=== PATIENT | male | born 1965 | race Caucasian/White ===

== ENCOUNTER 2020-09-28 21:17 | Inpatient (IN) ==
[2020-09-29] MEDS ORDERED: Naloxone 0.4 MG/ML INJ IVP PRN (00:38)
[2020-09-29] MEDS ORDERED: Ondansetron 4 MG/2 ML VIAL IVP PRN (00:38)
[2020-09-29] MEDS ORDERED: Acetaminophen 325 MG TABLET PO PRN (00:38)
[2020-09-29] MEDS ORDERED: Perflutren Lipid Microsphere 1.3 ML in 0.9 % Sodium Chloride 8.7 ML IVP PRN (00:47)
[2020-09-29 02:00] LABS: Basophils % 0.4 %; Eosinophils # 0.2 K/mcL (0.0-0.6); Eosinophils % 2.1 %; Hematocrit 36.6 % (37.5-50.1); Hemoglobin 11.5 g/dL (12.9-16.9); Immature Granulocytes % 0.4 % (0-4); Lymphocytes # 1.9 K/mcL (0.6-4.6); Lymphocytes % 22.4 %; Mean Corpuscular HGB Conc 31.4 g/dL (31.6-35.5); Mean Corpuscular Hemoglobin 25.5 pg (28.0-33.3); Mean Corpuscular Volume 81.2 fL (83.0-100.0); Mean Platelet Volume 10.5 fL (9.4-12.4); Monocytes # 0.7 K/mcL (0.0-1.3); Monocytes % 8.2 %; Neutrophils # 5.6 K/mcL (1.6-8.9); Platelet Count 196 K/mcL (140-400); Red Blood Count 4.51 M/mcL (4.19-5.50); Red Cell Distribution Width 17.4 % (11.5-14.5); Segmented Neutrophils % 66.5 %; White Blood Count 8.5 K/mcL (4.3-11.1)
[2020-09-29 02:21] LABS: BUN/Creatinine Ratio 11 (6-26); Blood Urea Nitrogen 10 mg/dL (6-20); Carbon Dioxide 36 mEq/L (23-29); Chloride 99 mEq/L (98-107); Glucose 78 mg/dL (70-105); Magnesium 1.4 mg/dL (1.6-2.6); Osmolality,Calculated 288 (280-300); Phosphorous 3.4 mg/dL (2.7-4.5); Potassium 3.6 mEq/L (3.5-5.1); Sodium 140 mEq/L (136-145); eGFR For African Americans > 60 (> 60); eGFR For Non-African Americans > 60 (> 60)
[2020-09-29 02:41] LABS: Thyroid Stimulating Hormone 1.378 mcIU/mL (0.340-5.600)
[2020-09-29] MEDS: Ipratropium/Albuterol Neb 3 ML IH SCH ×5 (03:21→21:41)
[2020-09-29] MEDS: Budesonide/Formoterol 160/4.5 1 PUFF INH IH SCH ×3 (03:21→21:41)
[2020-09-29 03:25] LABS: INR 1.9; Prothrombin Time 21.1 Seconds (9.4-12.1)
[2020-09-29] MEDS: levoFLOXacin 750 MG/150 ML 750 MG/150 ML BAG IVPB SCH (03:31)
[2020-09-29] MEDS: MethylPREDNISolone 40 MG/ML VIAL IVP SCH ×3 (05:20→18:04)
[2020-09-29 07:24] LABS: Troponin I 0.04 ng/mL (< 0.04)
[2020-09-29] MEDS: Nicotine 7 MG PATCH.TD24 TD SCH (08:15)
[2020-09-29] MEDS: Furosemide 40 MG/4 ML VIAL IVP SCH ×2 (08:15→20:39)
[2020-09-29] MEDS: Pantoprazole 40 MG VIAL IVP SCH (10:01)
[2020-09-29] MEDS ORDERED: *HR* FentaNYL (PF) 100 MCG/2 ML VIAL ONE (16:44)
[2020-09-29] MEDS ORDERED: *HR* Midazolam HCl 5 MG/5 ML VIAL IVP ONE ×2 (16:45→17:12)
[2020-09-29] MEDS ORDERED: *HR* FentaNYL (PF) 100 MCG/2 ML VIAL IVP ONE (17:12)
[2020-09-29] MEDS: carvediloL 6.25 MG TABLET PO SCH (18:04)
[2020-09-29] MEDS: IPRATROPIUM BROMIDE 0.03% NASAL SPRAY IH SCH (20:38)
[2020-09-29] MEDS: Tiotropium 10 INH DOSE IH SCH (21:24)
[2020-09-29] MEDS ORDERED: Budesonide/Formoterol 160/4.5 1 PUFF INH IH SCH (22:00)
[2020-09-30] MEDS: MethylPREDNISolone 40 MG/ML VIAL IVP SCH ×4 (01:27→18:12)
[2020-09-30] MEDS: levoFLOXacin 750 MG/150 ML 750 MG/150 ML BAG IVPB SCH ×2 (03:41→23:56)
[2020-09-30] MEDS: Ipratropium/Albuterol Neb 3 ML IH SCH ×4 (04:01→23:05)
[2020-09-30 07:54] LABS: Basophils % 0.1 %; Hematocrit 36.4 % (37.5-50.1); Hemoglobin 11.8 g/dL (12.9-16.9); Immature Granulocytes % 0.3 % (0-4); Lymphocytes # 0.5 K/mcL (0.6-4.6); Lymphocytes % 6.5 %; Mean Corpuscular HGB Conc 32.4 g/dL (31.6-35.5); Mean Corpuscular Hemoglobin 25.8 pg (28.0-33.3); Mean Corpuscular Volume 79.5 fL (83.0-100.0); Mean Platelet Volume 10.3 fL (9.4-12.4); Monocytes # 0.3 K/mcL (0.0-1.3); Monocytes % 4.1 %; Neutrophils # 6.3 K/mcL (1.6-8.9); Platelet Count 191 K/mcL (140-400); Red Blood Count 4.58 M/mcL (4.19-5.50); Red Cell Distribution Width 17.2 % (11.5-14.5)
[2020-09-30 08:44] LABS: Blood Urea Nitrogen 20 mg/dL (6-20); Carbon Dioxide 35 mEq/L (23-29); Chloride 94 mEq/L (98-107); Potassium 3.8 mEq/L (3.5-5.1); Sodium 137 mEq/L (136-145)
[2020-09-30 08:45] LABS: BUN/Creatinine Ratio 16 (6-26); Calcium 9.1 mg/dL (8.6-10.3); Glucose 167 mg/dL (70-105); Osmolality,Calculated 290 (280-300); eGFR For African Americans > 60 (> 60); eGFR For Non-African Americans > 60 (> 60)
[2020-09-30] MEDS ORDERED: Spironolactone 25 MG TABLET PO SCH (09:00)
[2020-09-30] MEDS: IPRATROPIUM BROMIDE 0.03% NASAL SPRAY IH SCH (09:21)
[2020-09-30] MEDS: Loratadine 10 MG TABLET PO SCH (09:21)
[2020-09-30] MEDS: carvediloL 6.25 MG TABLET PO SCH ×3 (09:21→18:12)
[2020-09-30] MEDS: Pantoprazole 40 MG VIAL IVP SCH (09:21)
[2020-09-30] MEDS: Nicotine 7 MG PATCH.TD24 TD SCH (09:22)
[2020-09-30] MEDS: Furosemide 40 MG/4 ML VIAL IVP SCH ×2 (09:22→20:11)
[2020-09-30] MEDS: Tiotropium 10 INH DOSE IH SCH ×2 (10:20→20:26)
[2020-09-30] MEDS: Budesonide/Formoterol 160/4.5 1 PUFF INH IH SCH ×2 (10:21→20:26)
[2020-09-30] MEDS ORDERED: MethylPREDNISolone 40 MG/ML VIAL IVP SCH (16:00)
[2020-09-30] MEDS: Apixaban 5 MG TABLET PO SCH (20:11)
[2020-09-30] MEDS: Magnesium Oxide 400 MG TABLET PO SCH (21:24)
[2020-10-01 02:55] LABS: Hematocrit 35.9 % (37.5-50.1); Hemoglobin 11.5 g/dL (12.9-16.9); Immature Granulocytes % 0.5 % (0-4); Lymphocytes # 0.5 K/mcL (0.6-4.6); Lymphocytes % 3.6 %; Mean Corpuscular Hemoglobin 25.5 pg (28.0-33.3); Mean Corpuscular Volume 79.6 fL (83.0-100.0); Mean Platelet Volume 10.3 fL (9.4-12.4); Monocytes # 0.7 K/mcL (0.0-1.3); Monocytes % 5.1 %; Platelet Count 191 K/mcL (140-400); Red Blood Count 4.51 M/mcL (4.19-5.50); Red Cell Distribution Width 17.4 % (11.5-14.5); Segmented Neutrophils % 90.8 %
[2020-10-01 02:56] LABS: White Blood Count 14.3 K/mcL (4.3-11.1)
[2020-10-01 03:19] LABS: BUN/Creatinine Ratio 24 (6-26); Blood Urea Nitrogen 33 mg/dL (6-20); Carbon Dioxide 34 mEq/L (23-29); Chloride 96 mEq/L (98-107); Chol/HDL Ratio 3.6 (0-4.9); Cholesterol 125 mg/dL (< 200); Glucose 142 mg/dL (70-105); HDL Cholesterol 35 mg/dL (40-59); LDL Cholesterol,Calculated 73 mg/dL (< 100); Magnesium 1.6 mg/dL (1.6-2.6); Osmolality,Calculated 296 (280-300); Potassium 3.9 mEq/L (3.5-5.1); Sodium 138 mEq/L (136-145); Triglycerides 85 mg/dL (< 150); eGFR For African Americans > 60 (> 60); eGFR For Non-African Americans 54 (> 60)
[2020-10-01] MEDS: Ipratropium/Albuterol Neb 3 ML IH SCH ×3 (04:15→15:20)
[2020-10-01] MEDS: MethylPREDNISolone 40 MG/ML VIAL IVP SCH (06:23)
[2020-10-01] MEDS ORDERED: carvediloL 6.25 MG TABLET PO SCH (08:00)
[2020-10-01] MEDS ORDERED: Magnesium Oxide 400 MG TABLET PO SCH (09:00)
[2020-10-01] MEDS ORDERED: Furosemide 40 MG/4 ML VIAL IVP SCH (09:00)
[2020-10-01] MEDS: Spironolactone 25 MG TABLET PO SCH (09:11)
[2020-10-01] MEDS: Aspirin 81 MG TAB.CHEW PO SCH (09:11)
[2020-10-01] MEDS: predniSONE 20 MG TABLET PO SCH (09:11)
[2020-10-01] MEDS: levoFLOXacin 750 MG TABLET PO SCH (09:11)
[2020-10-01] MEDS: Apixaban 5 MG TABLET PO SCH ×2 (09:11→20:39)
[2020-10-01] MEDS: Pantoprazole 40 MG VIAL IVP SCH (09:11)
[2020-10-01] MEDS: carvediloL 6.25 MG TABLET PO SCH ×2 (09:12→16:33)
[2020-10-01] MEDS: Nicotine 7 MG PATCH.TD24 TD SCH (09:12)
[2020-10-01] MEDS: Loratadine 10 MG TABLET PO SCH (09:12)
[2020-10-01] MEDS: Magnesium Oxide 400 MG TABLET PO SCH (09:12)
[2020-10-01] MEDS: Isosorbide MONOnitrate (24 HR) 30 MG TAB.ER.24H PO SCH (09:12)
[2020-10-01] MEDS: Budesonide/Formoterol 160/4.5 1 PUFF INH IH SCH ×2 (10:13→22:29)
[2020-10-01] MEDS: Tiotropium 10 INH DOSE IH SCH ×2 (10:14→22:33)
[2020-10-01] MEDS ORDERED: Furosemide 40 MG/4 ML VIAL IVP ONE (10:56)
[2020-10-01] MEDS: Levalbuterol Neb 0.63 MG/3 ML IH SCH (22:29)
[2020-10-02 01:17] LABS: Basophils % 0.1 %; Hematocrit 33.3 % (37.5-50.1); Hemoglobin 10.9 g/dL (12.9-16.9); Immature Granulocytes % 0.5 % (0-4); Lymphocytes # 0.6 K/mcL (0.6-4.6); Lymphocytes % 4.2 %; Mean Corpuscular HGB Conc 32.7 g/dL (31.6-35.5); Mean Corpuscular Hemoglobin 25.9 pg (28.0-33.3); Mean Corpuscular Volume 79.1 fL (83.0-100.0); Mean Platelet Volume 10.9 fL (9.4-12.4); Monocytes # 0.9 K/mcL (0.0-1.3); Monocytes % 6.3 %; Neutrophils # 12.4 K/mcL (1.6-8.9); Platelet Count 187 K/mcL (140-400); Red Blood Count 4.21 M/mcL (4.19-5.50); Red Cell Distribution Width 17.2 % (11.5-14.5); Segmented Neutrophils % 88.9 %; White Blood Count 13.9 K/mcL (4.3-11.1)
[2020-10-02 01:36] LABS: BUN/Creatinine Ratio 31 (6-26); Blood Urea Nitrogen 44 mg/dL (6-20); Calcium 8.9 mg/dL (8.6-10.3); Carbon Dioxide 36 mEq/L (23-29); Chloride 93 mEq/L (98-107); Glucose 139 mg/dL (70-105); Osmolality,Calculated 293 (280-300); Potassium 4.1 mEq/L (3.5-5.1); Sodium 135 mEq/L (136-145); eGFR For African Americans > 60 (> 60); eGFR For Non-African Americans 51 (> 60)
[2020-10-02] MEDS: Levalbuterol Neb 0.63 MG/3 ML IH SCH ×4 (03:59→22:05)
[2020-10-02] MEDS: Aspirin 81 MG TAB.CHEW PO SCH (07:59)
[2020-10-02] MEDS: Pantoprazole 40 MG VIAL IVP SCH (07:59)
[2020-10-02] MEDS: Magnesium Oxide 400 MG TABLET PO SCH (08:00)
[2020-10-02] MEDS: Furosemide 40 MG TABLET PO SCH (08:00)
[2020-10-02] MEDS: predniSONE 20 MG TABLET PO SCH (08:00)
[2020-10-02] MEDS: Apixaban 5 MG TABLET PO SCH ×2 (08:00→21:21)
[2020-10-02] MEDS: carvediloL 6.25 MG TABLET PO SCH ×2 (08:00→16:32)
[2020-10-02] MEDS: levoFLOXacin 750 MG TABLET PO SCH (08:00)
[2020-10-02] MEDS: Isosorbide MONOnitrate (24 HR) 30 MG TAB.ER.24H PO SCH (08:00)
[2020-10-02] MEDS: Spironolactone 25 MG TABLET PO SCH (08:00)
[2020-10-02] MEDS: Loratadine 10 MG TABLET PO SCH (08:01)
[2020-10-02] MEDS: Nicotine 7 MG PATCH.TD24 TD SCH (08:01)
[2020-10-02] MEDS: Budesonide/Formoterol 160/4.5 1 PUFF INH IH SCH ×2 (10:40→22:04)
[2020-10-02] MEDS: Tiotropium 10 INH DOSE IH SCH ×2 (10:41→22:03)
[2020-10-02 10:51] LABS: Magnesium 1.7 mg/dL (1.6-2.6)
[2020-10-03] MEDS: Levalbuterol Neb 0.63 MG/3 ML IH SCH ×2 (04:07→11:04)
[2020-10-03 05:43] LABS: Hematocrit 34.6 % (37.5-50.1); Immature Granulocytes % 0.5 % (0-4); Lymphocytes # 1.2 K/mcL (0.6-4.6); Lymphocytes % 10.3 %; Mean Corpuscular HGB Conc 31.8 g/dL (31.6-35.5); Mean Corpuscular Hemoglobin 25.2 pg (28.0-33.3); Mean Corpuscular Volume 79.2 fL (83.0-100.0); Mean Platelet Volume 10.6 fL (9.4-12.4); Monocytes # 0.8 K/mcL (0.0-1.3); Monocytes % 6.8 %; Neutrophils # 9.3 K/mcL (1.6-8.9); Platelet Count 154 K/mcL (140-400); Red Blood Count 4.37 M/mcL (4.19-5.50); Red Cell Distribution Width 17.1 % (11.5-14.5); Segmented Neutrophils % 82.4 %; White Blood Count 11.3 K/mcL (4.3-11.1)
[2020-10-03 05:53] LABS: BUN/Creatinine Ratio 30 (6-26); Blood Urea Nitrogen 42 mg/dL (6-20); Calcium 8.9 mg/dL (8.6-10.3); Carbon Dioxide 37 mEq/L (23-29); Chloride 95 mEq/L (98-107); Glucose 118 mg/dL (70-105); Magnesium 1.9 mg/dL (1.6-2.6); Osmolality,Calculated 292 (280-300); Potassium 3.7 mEq/L (3.5-5.1); Sodium 135 mEq/L (136-145); eGFR For African Americans > 60 (> 60); eGFR For Non-African Americans 53 (> 60)
[2020-10-03] MEDS: Magnesium Oxide 400 MG TABLET PO SCH (07:59)
[2020-10-03] MEDS: Spironolactone 25 MG TABLET PO SCH (07:59)
[2020-10-03] MEDS: carvediloL 6.25 MG TABLET PO SCH (07:59)
[2020-10-03] MEDS: Loratadine 10 MG TABLET PO SCH (08:00)
[2020-10-03] MEDS: levoFLOXacin 750 MG TABLET PO SCH (08:00)
[2020-10-03] MEDS: Aspirin 81 MG TAB.CHEW PO SCH (08:00)
[2020-10-03] MEDS: Isosorbide MONOnitrate (24 HR) 30 MG TAB.ER.24H PO SCH (08:00)
[2020-10-03] MEDS: Furosemide 40 MG TABLET PO SCH (08:00)
[2020-10-03] MEDS: Nicotine 7 MG PATCH.TD24 TD SCH (08:00)
[2020-10-03] MEDS: predniSONE 20 MG TABLET PO SCH (08:00)
[2020-10-03] MEDS: Apixaban 5 MG TABLET PO SCH (08:00)
[2020-10-03 09:41] VITALS: BP 127/83; PULSE 86; TEMP 98.2; O2SAT 96
[2020-10-03] MEDS: Budesonide/Formoterol 160/4.5 1 PUFF INH IH SCH (11:04)
[2020-10-03] MEDS: Tiotropium 10 INH DOSE IH SCH (11:05)
== END 2020-10-03 13:58 | disposition home or self-care (01) | DRG 254 ==
LOC: 3ANU → SUATTDRO 23:41
PROVIDERS: ADMIT Student in an Organized Health Care Education/Training Program; ATTEND General Practice
PROC: ENDOEBX (2020-09-29 14:00)

== ENCOUNTER 2020-10-21 13:04 | Inpatient (IN) ==
[2020-10-22] MEDS ORDERED: *HR* HYDROcodone/Acet 5/325 mg TABLET PO PRN (00:55)
[2020-10-22] MEDS ORDERED: *HR* Promethazine 25 MG/ML VIAL IM PRN (00:55)
[2020-10-22] MEDS ORDERED: Ondansetron 4 MG/2 ML VIAL IVP PRN (00:55)
[2020-10-22] MEDS ORDERED: Melatonin 3 MG TABLET PO PRN (00:55)
[2020-10-22] MEDS ORDERED: Naloxone 0.4 MG/ML INJ IVP PRN (00:55)
[2020-10-22] MEDS ORDERED: *HR* Metoprolol 5 MG/5 ML VIAL IVP ONE (02:37)
[2020-10-22] MEDS: Ipratropium/Albuterol Neb 3 ML IH PRN ×2 (04:03→10:30)
[2020-10-22] MEDS: Doxycycline 100 MG in 0.9 % Sodium Chloride Mini Bag 100 ML IVPB SCH ×2 (05:49→17:15)
[2020-10-22 06:23] LABS: Hematocrit 32.3 % (37.5-50.1); Hemoglobin 10.4 g/dL (12.9-16.9); Immature Granulocytes % 0.8 % (0-4); Lymphocytes # 0.7 K/mcL (0.6-4.6); Lymphocytes % 4.8 %; Mean Corpuscular HGB Conc 32.2 g/dL (31.6-35.5); Mean Corpuscular Hemoglobin 26.1 pg (28.0-33.3); Mean Platelet Volume 10.8 fL (9.4-12.4); Monocytes # 0.4 K/mcL (0.0-1.3); Monocytes % 2.5 %; Neutrophils # 14.2 K/mcL (1.6-8.9); Platelet Count 166 K/mcL (140-400); Red Blood Count 3.99 M/mcL (4.19-5.50); Red Cell Distribution Width 17.8 % (11.5-14.5); Segmented Neutrophils % 91.9 %; White Blood Count 15.5 K/mcL (4.3-11.1)
[2020-10-22 06:30] LABS: INR 1.6; Prothrombin Time 18.1 Seconds (9.4-12.1)
[2020-10-22 06:45] LABS: Alanine Aminotransferase 38 Units/L (7-52); Albumin 3.6 g/dL (3.5-5.7); Albumin/Globulin Ratio 1.8 (1.1-2.2); Alkaline Phosphatase 105 Units/L (34-104); Aspartate Amino Transferase 25 Units/L (13-39); BUN/Creatinine Ratio 20 (6-26); Bilirubin,Total 0.3 mg/dL (0.3-1.0); Blood Urea Nitrogen 26 mg/dL (6-20); Carbon Dioxide 27 mEq/L (23-29); Chloride 102 mEq/L (98-107); Glucose 195 mg/dL (70-105); Magnesium 2.7 mg/dL (1.6-2.6); Osmolality,Calculated 288 (280-300); Phosphorous 3.1 mg/dL (2.7-4.5); Potassium 5.5 mEq/L (3.5-5.1); Sodium 134 mEq/L (136-145); Total Protein 5.6 g/dL (6.4-8.9); eGFR For African Americans > 60 (> 60); eGFR For Non-African Americans 56 (> 60)
[2020-10-22] MEDS ORDERED: Calcium Gluconate 1gm/50mL 1 GM/50 ML BAG IVPB ONE (08:39)
[2020-10-22 08:47] LABS: Calcium 9.2 mg/dL (8.6-10.3)
[2020-10-22] MEDS ORDERED: Furosemide 20 MG/2 ML VIAL IVP SCH (09:00)
[2020-10-22] MEDS ORDERED: Spironolactone 25 MG TABLET PO SCH (09:00)
[2020-10-22] MEDS: Aspirin 81 MG TAB.CHEW PO SCH (09:20)
[2020-10-22] MEDS: predniSONE 20 MG TABLET PO SCH (09:20)
[2020-10-22] MEDS: Apixaban 5 MG TABLET PO SCH ×2 (09:20→21:24)
[2020-10-22 13:43] LABS: Bilirubin,Urine Negative (Negative); Blood,Urine Negative (Negative); Clarity,Urine Clear (Clear); Color,Urine Colorless (Yellow); Glucose,Urine (UA) Normal (Normal); Ketones,Urine Negative (Negative); Leukocyte Esterase,Urine Negative (Negative); Nitrite,Urine Negative (Negative); Protein,Urine Negative (Neg-Trace); Specific Gravity,Urine 1.009 (1.010-1.025); Urobilinogen,Urine Normal (Normal)
[2020-10-22] MEDS: Levalbuterol Neb 0.63 MG/3 ML IH SCH ×2 (15:30→21:34)
[2020-10-22] MEDS ORDERED: Doxycycline 100 MG VIAL ONE (16:58)
[2020-10-22] MEDS: Furosemide 40 MG/4 ML VIAL IVP SCH (17:14)
[2020-10-22] MEDS: carvediloL 6.25 MG TABLET PO SCH (17:15)
[2020-10-22] MEDS: Budesonide/Formoterol 160/4.5 1 PUFF INH IH SCH (21:47)
[2020-10-23] MEDS: Furosemide 40 MG/4 ML VIAL IVP SCH ×2 (00:05→07:44)
[2020-10-23 02:14] LABS: Basophils % 0.1 %; Hematocrit 34.4 % (37.5-50.1); Hemoglobin 10.5 g/dL (12.9-16.9); Immature Granulocytes % 0.7 % (0-4); Lymphocytes # 0.8 K/mcL (0.6-4.6); Lymphocytes % 4.9 %; Mean Corpuscular HGB Conc 30.5 g/dL (31.6-35.5); Mean Corpuscular Hemoglobin 24.3 pg (28.0-33.3); Mean Corpuscular Volume 79.6 fL (83.0-100.0); Mean Platelet Volume 10.4 fL (9.4-12.4); Monocytes # 0.7 K/mcL (0.0-1.3); Monocytes % 4.5 %; Neutrophils # 13.6 K/mcL (1.6-8.9); Nucleated Red Blood Cells 0.6 /100 WBC (0); Platelet Count 180 K/mcL (140-400); Red Blood Count 4.32 M/mcL (4.19-5.50); Red Cell Distribution Width 17.7 % (11.5-14.5); Segmented Neutrophils % 89.8 %; White Blood Count 15.2 K/mcL (4.3-11.1)
[2020-10-23 02:31] LABS: BUN/Creatinine Ratio 24 (6-26); Blood Urea Nitrogen 35 mg/dL (6-20); Calcium 9.4 mg/dL (8.6-10.3); Carbon Dioxide 29 mEq/L (23-29); Chloride 97 mEq/L (98-107); Glucose 163 mg/dL (70-105); Magnesium 1.9 mg/dL (1.6-2.6); Osmolality,Calculated 288 (280-300); Potassium 4.6 mEq/L (3.5-5.1); Sodium 133 mEq/L (136-145); eGFR For African Americans > 60 (> 60); eGFR For Non-African Americans 51 (> 60)
[2020-10-23] MEDS: Levalbuterol Neb 0.63 MG/3 ML IH SCH ×4 (04:05→21:53)
[2020-10-23] MEDS: Doxycycline 100 MG in 0.9 % Sodium Chloride Mini Bag 100 ML IVPB SCH ×2 (07:32→18:57)
[2020-10-23] MEDS: Loratadine 10 MG TABLET PO SCH (07:45)
[2020-10-23] MEDS: carvediloL 6.25 MG TABLET PO SCH ×2 (07:45→16:59)
[2020-10-23] MEDS: Aspirin 81 MG TAB.CHEW PO SCH (07:45)
[2020-10-23] MEDS: predniSONE 20 MG TABLET PO SCH (07:46)
[2020-10-23] MEDS: Apixaban 5 MG TABLET PO SCH ×2 (07:46→20:19)
[2020-10-23] MEDS: (Roflumilast [Daliresp] 500 MCG Tablet) PO SCH (07:47)
[2020-10-23] MEDS: Budesonide/Formoterol 160/4.5 1 PUFF INH IH SCH ×2 (09:31→21:53)
[2020-10-23] MEDS: Tiotropium 10 INH DOSE IH SCH (09:35)
[2020-10-23] MEDS: Nicotine 21 MG PATCH.TD24 TD SCH (16:58)
[2020-10-23] MEDS: Acetaminophen 325 MG TABLET PO PRN (20:45)
[2020-10-24] MEDS: Levalbuterol Neb 0.63 MG/3 ML IH SCH ×4 (03:46→22:15)
[2020-10-24] MEDS: Doxycycline 100 MG in 0.9 % Sodium Chloride Mini Bag 100 ML IVPB SCH (05:15)
[2020-10-24 06:59] LABS: VBG HCO3 29 mEq/L (21-27); VBG PCO2 54 mmHg (41-51); VBG PH 7.34 pH Units (7.32-7.42); VBG PO2 40 mmHg (25-50)
[2020-10-24 07:08] LABS: Basophils % 0.1 %; Hematocrit 40.5 % (37.5-50.1); Immature Granulocytes % 0.4 % (0-4); Lymphocytes # 2.5 K/mcL (0.6-4.6); Lymphocytes % 15.5 %; Mean Corpuscular HGB Conc 31.9 g/dL (31.6-35.5); Mean Corpuscular Volume 78.6 fL (83.0-100.0); Mean Platelet Volume 10.2 fL (9.4-12.4); Monocytes # 1.3 K/mcL (0.0-1.3); Monocytes % 7.9 %; Neutrophils # 12.4 K/mcL (1.6-8.9); Nucleated Red Blood Cells 0.9 /100 WBC (0); Platelet Count 217 K/mcL (140-400); Red Blood Count 5.15 M/mcL (4.19-5.50); Red Cell Distribution Width 17.8 % (11.5-14.5); Segmented Neutrophils % 76.1 %; White Blood Count 16.3 K/mcL (4.3-11.1)
[2020-10-24 07:11] LABS: Hemoglobin 12.9 g/dL (12.9-16.9)
[2020-10-24 07:53] LABS: BUN/Creatinine Ratio 29 (6-26); Blood Urea Nitrogen 40 mg/dL (6-20); Carbon Dioxide 28 mEq/L (23-29); Chloride 97 mEq/L (98-107); Glucose 85 mg/dL (70-105); Magnesium 1.5 mg/dL (1.6-2.6); Osmolality,Calculated 287 (280-300); Potassium 3.8 mEq/L (3.5-5.1); Sodium 134 mEq/L (136-145); eGFR For African Americans > 60 (> 60); eGFR For Non-African Americans 53 (> 60)
[2020-10-24] MEDS: predniSONE 20 MG TABLET PO SCH (08:50)
[2020-10-24] MEDS: Apixaban 5 MG TABLET PO SCH ×2 (08:51→21:23)
[2020-10-24] MEDS: Nicotine 21 MG PATCH.TD24 TD SCH (08:51)
[2020-10-24] MEDS: Aspirin 81 MG TAB.CHEW PO SCH (08:51)
[2020-10-24] MEDS: Furosemide 40 MG TABLET PO SCH (08:51)
[2020-10-24] MEDS: Loratadine 10 MG TABLET PO SCH (08:51)
[2020-10-24] MEDS: carvediloL 6.25 MG TABLET PO SCH (08:51)
[2020-10-24] MEDS: (Roflumilast [Daliresp] 500 MCG Tablet) PO SCH (09:10)
[2020-10-24] MEDS ORDERED: carvediloL 6.25 MG TABLET PO ONE ×2 (09:22→10:00)
[2020-10-24] MEDS: Tiotropium 10 INH DOSE IH SCH (10:26)
[2020-10-24] MEDS: Budesonide/Formoterol 160/4.5 1 PUFF INH IH SCH ×2 (10:27→22:13)
[2020-10-24] MEDS: carvediloL 25 MG TABLET PO SCH (16:57)
[2020-10-24] MEDS: Doxycycline 100 MG CAPSULE PO SCH (21:23)
[2020-10-24] MEDS: Acetaminophen 325 MG TABLET PO PRN (21:26)
[2020-10-24] MEDS ORDERED: *HR* Metoprolol 5 MG/5 ML VIAL IVP ONE (23:18)
[2020-10-25] MEDS ORDERED: *HR* Metoprolol 5 MG/5 ML VIAL IVP ONE ×2 (00:12→03:05)
[2020-10-25] MEDS: Levalbuterol Neb 0.63 MG/3 ML IH SCH ×4 (03:50→21:52)
[2020-10-25 06:58] LABS: VBG HCO3 30 mEq/L (21-27); VBG PCO2 54 mmHg (41-51); VBG PH 7.35 pH Units (7.32-7.42); VBG PO2 87 mmHg (25-50)
[2020-10-25 07:52] LABS: Basophils % 0.1 %; Eosinophils % 0.1 %; Hematocrit 34.8 % (37.5-50.1); Hemoglobin 10.7 g/dL (12.9-16.9); Immature Granulocytes % 0.5 % (0-4); Lymphocytes # 2.1 K/mcL (0.6-4.6); Lymphocytes % 14.1 %; Mean Corpuscular HGB Conc 30.7 g/dL (31.6-35.5); Mean Corpuscular Hemoglobin 24.3 pg (28.0-33.3); Mean Corpuscular Volume 79.1 fL (83.0-100.0); Mean Platelet Volume 10.1 fL (9.4-12.4); Monocytes # 1.4 K/mcL (0.0-1.3); Monocytes % 9.1 %; Neutrophils # 11.2 K/mcL (1.6-8.9); Nucleated Red Blood Cells 0.3 /100 WBC (0); Platelet Count 191 K/mcL (140-400); Red Cell Distribution Width 17.4 % (11.5-14.5); Segmented Neutrophils % 76.1 %; White Blood Count 14.8 K/mcL (4.3-11.1)
[2020-10-25 08:00] LABS: BUN/Creatinine Ratio 35 (6-26); Blood Urea Nitrogen 47 mg/dL (6-20); Calcium 8.6 mg/dL (8.6-10.3); Carbon Dioxide 30 mEq/L (23-29); Chloride 100 mEq/L (98-107); Glucose 100 mg/dL (70-105); Magnesium 1.7 mg/dL (1.6-2.6); Osmolality,Calculated 292 (280-300); Potassium 3.8 mEq/L (3.5-5.1); Sodium 135 mEq/L (136-145); eGFR For African Americans > 60 (> 60); eGFR For Non-African Americans 55 (> 60)
[2020-10-25] MEDS: Doxycycline 100 MG CAPSULE PO SCH ×2 (09:21→21:59)
[2020-10-25] MEDS: Aspirin 81 MG TAB.CHEW PO SCH (09:22)
[2020-10-25] MEDS: predniSONE 20 MG TABLET PO SCH (09:22)
[2020-10-25] MEDS: Furosemide 40 MG TABLET PO SCH (09:23)
[2020-10-25] MEDS: Loratadine 10 MG TABLET PO SCH (09:23)
[2020-10-25] MEDS: carvediloL 25 MG TABLET PO SCH ×2 (09:25→17:07)
[2020-10-25] MEDS: Apixaban 5 MG TABLET PO SCH ×2 (09:25→21:58)
[2020-10-25] MEDS: (Roflumilast [Daliresp] 500 MCG Tablet) PO SCH (09:26)
[2020-10-25] MEDS: Nicotine 21 MG PATCH.TD24 TD SCH (09:28)
[2020-10-25] MEDS: Budesonide/Formoterol 160/4.5 1 PUFF INH IH SCH ×2 (10:46→21:52)
[2020-10-25] MEDS: Tiotropium 10 INH DOSE IH SCH (10:47)
[2020-10-25] MEDS: Magnesium Oxide 400 MG TABLET PO SCH ×2 (14:25→21:59)
[2020-10-25] MEDS: Acetylcysteine 10% 2 ML INHSOL IH SCH ×2 (15:15→21:52)
[2020-10-26] MEDS: Levalbuterol Neb 0.63 MG/3 ML IH SCH ×2 (04:13→10:55)
[2020-10-26 05:34] LABS: Basophils % 0.1 %; Eosinophils % 0.1 %; Hematocrit 33.8 % (37.5-50.1); Hemoglobin 10.6 g/dL (12.9-16.9); Immature Granulocytes % 0.5 % (0-4); Lymphocytes # 1.8 K/mcL (0.6-4.6); Lymphocytes % 14.4 %; Mean Corpuscular HGB Conc 31.4 g/dL (31.6-35.5); Mean Corpuscular Volume 79.7 fL (83.0-100.0); Mean Platelet Volume 10.1 fL (9.4-12.4); Monocytes # 1.2 K/mcL (0.0-1.3); Monocytes % 9.2 %; Neutrophils # 9.6 K/mcL (1.6-8.9); Nucleated Red Blood Cells 0.3 /100 WBC (0); Platelet Count 175 K/mcL (140-400); Red Blood Count 4.24 M/mcL (4.19-5.50); Red Cell Distribution Width 17.5 % (11.5-14.5); Segmented Neutrophils % 75.7 %; White Blood Count 12.7 K/mcL (4.3-11.1)
[2020-10-26 05:52] LABS: BUN/Creatinine Ratio 36 (6-26); Blood Urea Nitrogen 42 mg/dL (6-20); Calcium 8.5 mg/dL (8.6-10.3); Carbon Dioxide 30 mEq/L (23-29); Chloride 101 mEq/L (98-107); Glucose 85 mg/dL (70-105); Osmolality,Calculated 292 (280-300); Potassium 4.1 mEq/L (3.5-5.1); Sodium 136 mEq/L (136-145); eGFR For African Americans > 60 (> 60); eGFR For Non-African Americans > 60 (> 60)
[2020-10-26 07:20] VITALS: BP 115/81; PULSE 76; TEMP 97.6
[2020-10-26] MEDS: (Roflumilast [Daliresp] 500 MCG Tablet) PO SCH (08:03)
[2020-10-26] MEDS: Magnesium Oxide 400 MG TABLET PO SCH (08:08)
[2020-10-26] MEDS: Furosemide 40 MG TABLET PO SCH (08:09)
[2020-10-26] MEDS: Loratadine 10 MG TABLET PO SCH (08:09)
[2020-10-26] MEDS: carvediloL 25 MG TABLET PO SCH (08:09)
[2020-10-26] MEDS: predniSONE 20 MG TABLET PO SCH (08:10)
[2020-10-26] MEDS: Doxycycline 100 MG CAPSULE PO SCH (08:10)
[2020-10-26] MEDS: Apixaban 5 MG TABLET PO SCH (08:12)
[2020-10-26] MEDS: Acetaminophen 325 MG TABLET PO PRN (08:12)
[2020-10-26] MEDS: Nicotine 21 MG PATCH.TD24 TD SCH (08:13)
[2020-10-26] MEDS: Aspirin 81 MG TAB.CHEW PO SCH (08:20)
[2020-10-26 09:36] LABS: Magnesium 1.6 mg/dL (1.6-2.6)
[2020-10-26] MEDS: Budesonide/Formoterol 160/4.5 1 PUFF INH IH SCH (10:55)
[2020-10-26] MEDS: Acetylcysteine 10% 2 ML INHSOL IH SCH (10:55)
[2020-10-26] MEDS: Tiotropium 10 INH DOSE IH SCH (10:55)
[2020-10-26 14:18] VITALS: O2SAT 99
== END 2020-10-26 14:48 | disposition home or self-care (01) | DRG 201 ==
LOC: 3ANU → SUATTDRO 10-22 00:30 → OBSVTOIN 10-22 00:30
PROVIDERS: ADMIT Family Medicine; ATTEND General Practice

== ENCOUNTER 2020-10-31 00:13 | Observation (INO) ==
[2020-11-01] MEDS ORDERED: Naloxone 0.4 MG/ML INJ IVP PRN (04:55)
[2020-11-01] MEDS ORDERED: Melatonin 3 MG TABLET PO PRN (04:55)
[2020-11-01] MEDS: Ondansetron 4 MG/2 ML VIAL IVP PRN (05:18)
[2020-11-01] MEDS: Nicotine 21 MG PATCH.TD24 TD SCH (07:52)
[2020-11-01] MEDS: predniSONE 20 MG TABLET PO SCH (07:52)
[2020-11-01] MEDS: Aspirin 81 MG TAB.CHEW PO SCH (07:53)
[2020-11-01] MEDS: Furosemide 40 MG TABLET PO SCH (07:53)
[2020-11-01] MEDS: Apixaban 5 MG TABLET PO SCH ×2 (07:53→21:03)
[2020-11-01] MEDS: Loratadine 10 MG TABLET PO SCH (07:53)
[2020-11-01] MEDS: levoFLOXacin 750 MG TABLET PO SCH (07:53)
[2020-11-01] MEDS: (Ipratropium Bromide 15 ML Spray) NS SCH ×2 (07:56→21:54)
[2020-11-01] MEDS ORDERED: Metoprolol XL (24 HR) Succ 50 MG TAB.ER.24H PO SCH (09:00)
[2020-11-01] MEDS ORDERED: Azithromycin 250 MG TABLET PO SCH (09:00)
[2020-11-01] MEDS ORDERED: (Roflumilast [Daliresp] 500 MCG Tablet) PO SCH (09:00)
[2020-11-01] MEDS: Levalbuterol Neb 0.63 MG/3 ML IH SCH ×3 (10:32→22:12)
[2020-11-01] MEDS: Tiotropium 10 INH DOSE IH SCH (10:32)
[2020-11-01] MEDS: (Roflumilast [Daliresp] 500 MCG Tablet) PO SCH (15:38)
[2020-11-01] MEDS: Metoprolol XL (24 HR) Succ 25 MG TAB.ER.24H PO SCH (21:03)
[2020-11-01] MEDS: Magnesium Oxide 400 MG TABLET PO SCH (21:03)
[2020-11-01] MEDS: Budesonide/Formoterol 160/4.5 1 PUFF INH IH SCH (22:12)
[2020-11-02 01:27] LABS: Basophils % 0.1 %; Hematocrit 33.2 % (37.5-50.1); Hemoglobin 10.6 g/dL (12.9-16.9); Lymphocytes # 0.9 K/mcL (0.6-4.6); Lymphocytes % 5.9 %; Mean Corpuscular HGB Conc 31.9 g/dL (31.6-35.5); Mean Corpuscular Hemoglobin 25.3 pg (28.0-33.3); Mean Corpuscular Volume 79.2 fL (83.0-100.0); Mean Platelet Volume 10.7 fL (9.4-12.4); Monocytes # 0.9 K/mcL (0.0-1.3); Neutrophils # 12.7 K/mcL (1.6-8.9); Platelet Count 211 K/mcL (140-400); Red Blood Count 4.19 M/mcL (4.19-5.50); Red Cell Distribution Width 18.2 % (11.5-14.5); White Blood Count 14.6 K/mcL (4.3-11.1)
[2020-11-02 02:02] LABS: Albumin 3.3 g/dL (3.5-5.7); Albumin/Globulin Ratio 1.6 (1.1-2.2); Calcium 8.9 mg/dL (8.6-10.3); Globulin 2.1 g/dL (2.4-3.5); Potassium 5.1 mEq/L (3.5-5.1); Total Protein 5.4 g/dL (6.4-8.9)
[2020-11-02] MEDS: Levalbuterol Neb 0.63 MG/3 ML IH SCH ×4 (03:18→22:17)
[2020-11-02 04:12] LABS: Bilirubin,Total 0.4 mg/dL (0.3-1.0)
[2020-11-02] MEDS: levoFLOXacin 750 MG TABLET PO SCH (07:58)
[2020-11-02] MEDS: predniSONE 20 MG TABLET PO SCH (07:58)
[2020-11-02] MEDS: Furosemide 40 MG TABLET PO SCH (07:59)
[2020-11-02] MEDS: Loratadine 10 MG TABLET PO SCH (07:59)
[2020-11-02] MEDS: Metoprolol XL (24 HR) Succ 25 MG TAB.ER.24H PO SCH ×3 (07:59→20:46)
[2020-11-02] MEDS: Apixaban 5 MG TABLET PO SCH ×2 (07:59→20:46)
[2020-11-02] MEDS: Aspirin 81 MG TAB.CHEW PO SCH (07:59)
[2020-11-02] MEDS: Magnesium Oxide 400 MG TABLET PO SCH ×2 (07:59→20:46)
[2020-11-02] MEDS: Nicotine 21 MG PATCH.TD24 TD SCH (08:00)
[2020-11-02] MEDS: (Ipratropium Bromide 15 ML Spray) NS SCH ×2 (08:01→20:47)
[2020-11-02] MEDS: (Roflumilast [Daliresp] 500 MCG Tablet) PO SCH (08:01)
[2020-11-02] MEDS ORDERED: Metoprolol XL (24 HR) Succ 25 MG TAB.ER.24H PO ONE (09:45)
[2020-11-02] MEDS ORDERED: Furosemide 20 MG/2 ML VIAL IVP ONE (09:54)
[2020-11-02] MEDS: Tiotropium 10 INH DOSE IH SCH (10:10)
[2020-11-02] MEDS: Budesonide/Formoterol 160/4.5 1 PUFF INH IH SCH ×2 (10:11→22:17)
[2020-11-02] MEDS: Ondansetron 4 MG/2 ML VIAL IVP PRN (10:19)
[2020-11-02] MEDS: Acetaminophen 325 MG TABLET PO PRN (15:56)
[2020-11-03 03:20] LABS: Hematocrit 32.1 % (37.5-50.1); Mean Corpuscular HGB Conc 31.2 g/dL (31.6-35.5); Mean Corpuscular Hemoglobin 24.6 pg (28.0-33.3); Mean Corpuscular Volume 79.1 fL (83.0-100.0); Mean Platelet Volume 10.5 fL (9.4-12.4); Platelet Count 183 K/mcL (140-400); Red Blood Count 4.06 M/mcL (4.19-5.50); Red Cell Distribution Width 17.8 % (11.5-14.5); White Blood Count 14.4 K/mcL (4.3-11.1)
[2020-11-03] MEDS: Levalbuterol Neb 0.63 MG/3 ML IH SCH ×4 (03:33→21:24)
[2020-11-03 03:42] LABS: BUN/Creatinine Ratio 35 (6-26); Blood Urea Nitrogen 50 mg/dL (6-20); Calcium 9.1 mg/dL (8.6-10.3); Carbon Dioxide 29 mEq/L (23-29); Chloride 101 mEq/L (98-107); Glucose 132 mg/dL (70-105); Osmolality,Calculated 295 (280-300); Potassium 5.1 mEq/L (3.5-5.1); Sodium 135 mEq/L (136-145); eGFR For African Americans > 60 (> 60); eGFR For Non-African Americans 51 (> 60)
[2020-11-03] MEDS: Ondansetron 4 MG/2 ML VIAL IVP PRN (08:16)
[2020-11-03] MEDS: Metoprolol XL (24 HR) Succ 25 MG TAB.ER.24H PO SCH ×2 (08:22→20:45)
[2020-11-03] MEDS: Magnesium Oxide 400 MG TABLET PO SCH ×2 (08:22→20:45)
[2020-11-03] MEDS: levoFLOXacin 750 MG TABLET PO SCH (08:23)
[2020-11-03] MEDS: Apixaban 5 MG TABLET PO SCH ×2 (08:23→20:45)
[2020-11-03] MEDS: Aspirin 81 MG TAB.CHEW PO SCH (08:24)
[2020-11-03] MEDS: Furosemide 40 MG TABLET PO SCH (08:24)
[2020-11-03] MEDS: Loratadine 10 MG TABLET PO SCH (08:24)
[2020-11-03] MEDS: Nicotine 21 MG PATCH.TD24 TD SCH (08:24)
[2020-11-03] MEDS: (Ipratropium Bromide 15 ML Spray) NS SCH ×2 (08:25→20:46)
[2020-11-03] MEDS: (Roflumilast [Daliresp] 500 MCG Tablet) PO SCH (08:26)
[2020-11-03] MEDS ORDERED: *HR* Digoxin 0.5 MG/2 ML AMPUL IVP ONE (10:14)
[2020-11-03] MEDS: Budesonide/Formoterol 160/4.5 1 PUFF INH IH SCH ×2 (10:41→21:24)
[2020-11-03] MEDS: Tiotropium 10 INH DOSE IH SCH (10:42)
[2020-11-03] MEDS: predniSONE 20 MG TABLET PO SCH (10:55)
[2020-11-03] MEDS: *HR* Digoxin 0.5 MG/2 ML AMPUL IVP SCH ×2 (16:34→23:47)
[2020-11-04] MEDS: Levalbuterol Neb 0.63 MG/3 ML IH SCH ×2 (04:42→10:11)
[2020-11-04 05:37] LABS: Hematocrit 32.1 % (37.5-50.1); Hemoglobin 10.2 g/dL (12.9-16.9); Immature Granulocytes % 0.8 % (0-4); Lymphocytes # 1.1 K/mcL (0.6-4.6); Lymphocytes % 7.7 %; Mean Corpuscular HGB Conc 31.8 g/dL (31.6-35.5); Mean Corpuscular Hemoglobin 24.9 pg (28.0-33.3); Mean Corpuscular Volume 78.3 fL (83.0-100.0); Mean Platelet Volume 10.7 fL (9.4-12.4); Monocytes # 0.8 K/mcL (0.0-1.3); Neutrophils # 11.7 K/mcL (1.6-8.9); Nucleated Red Blood Cells 0.4 /100 WBC (0); Platelet Count 176 K/mcL (140-400); Red Cell Distribution Width 17.7 % (11.5-14.5); Segmented Neutrophils % 85.5 %; White Blood Count 13.7 K/mcL (4.3-11.1)
[2020-11-04 06:02] LABS: BUN/Creatinine Ratio 39 (6-26); Blood Urea Nitrogen 44 mg/dL (6-20); Calcium 8.7 mg/dL (8.6-10.3); Carbon Dioxide 28 mEq/L (23-29); Chloride 103 mEq/L (98-107); Glucose 95 mg/dL (70-105); Osmolality,Calculated 293 (280-300); Potassium 4.7 mEq/L (3.5-5.1); Sodium 136 mEq/L (136-145); eGFR For African Americans > 60 (> 60); eGFR For Non-African Americans > 60 (> 60)
[2020-11-04] MEDS: Apixaban 5 MG TABLET PO SCH (08:22)
[2020-11-04] MEDS: predniSONE 20 MG TABLET PO SCH (08:22)
[2020-11-04] MEDS: Furosemide 40 MG TABLET PO SCH (08:22)
[2020-11-04] MEDS: Nicotine 21 MG PATCH.TD24 TD SCH (08:23)
[2020-11-04] MEDS: Aspirin 81 MG TAB.CHEW PO SCH (08:23)
[2020-11-04] MEDS: Metoprolol XL (24 HR) Succ 25 MG TAB.ER.24H PO SCH (08:23)
[2020-11-04] MEDS: Magnesium Oxide 400 MG TABLET PO SCH (08:23)
[2020-11-04] MEDS: Loratadine 10 MG TABLET PO SCH (08:23)
[2020-11-04] MEDS: (Roflumilast [Daliresp] 500 MCG Tablet) PO SCH (08:24)
[2020-11-04] MEDS: (Ipratropium Bromide 15 ML Spray) NS SCH (08:25)
[2020-11-04] MEDS: Acetaminophen 325 MG TABLET PO PRN (08:32)
[2020-11-04] MEDS: Ondansetron 4 MG/2 ML VIAL IVP PRN (08:33)
[2020-11-04] MEDS: Tiotropium 10 INH DOSE IH SCH (10:10)
[2020-11-04] MEDS: Budesonide/Formoterol 160/4.5 1 PUFF INH IH SCH (10:11)
[2020-11-04 11:33] VITALS: BP 112/69; PULSE 81; TEMP 97.9; O2SAT 98
== END 2020-11-04 14:20 | disposition home or self-care (01) ==
LOC: 3ANU → SUATTDRO 11-01 03:59
PROVIDERS: ADMIT Internal Medicine; ATTEND Internal Medicine

== ENCOUNTER 2020-11-11 14:27 | Observation (INO) ==
[2020-11-11 15:19] LABS: Basophils % 0.1 %; Eosinophils % 0.2 %; Hematocrit 34.6 % (37.5-50.1); Hemoglobin 10.6 g/dL (12.9-16.9); Immature Granulocytes % 0.4 % (0-4); Lymphocytes # 1.2 K/mcL (0.6-4.6); Mean Corpuscular HGB Conc 30.6 g/dL (31.6-35.5); Mean Corpuscular Hemoglobin 24.5 pg (28.0-33.3); Mean Corpuscular Volume 80.1 fL (83.0-100.0); Mean Platelet Volume 10.1 fL (9.4-12.4); Monocytes # 0.8 K/mcL (0.0-1.3); Monocytes % 6.5 %; Platelet Count 188 K/mcL (140-400); Red Blood Count 4.32 M/mcL (4.19-5.50); Red Cell Distribution Width 18.3 % (11.5-14.5); Segmented Neutrophils % 82.8 %; White Blood Count 12.1 K/mcL (4.3-11.1)
[2020-11-11 15:41] LABS: BUN/Creatinine Ratio 20 (6-26); Blood Urea Nitrogen 25 mg/dL (6-20); Calcium 8.9 mg/dL (8.6-10.3); Carbon Dioxide 31 mEq/L (23-29); Chloride 98 mEq/L (98-107); Glucose 86 mg/dL (70-105); Osmolality,Calculated 288 (280-300); Potassium 3.5 mEq/L (3.5-5.1); Sodium 137 mEq/L (136-145); eGFR For African Americans > 60 (> 60); eGFR For Non-African Americans > 60 (> 60)
[2020-11-11 15:47] LABS: Troponin I 0.04 ng/mL (< 0.04)
[2020-11-11] MEDS ORDERED: Isovue-370 500 ML BOTTLE IVP ONE (16:45)
[2020-11-11 19:05] LABS: Troponin I 0.05 ng/mL (< 0.04)
[2020-11-11] MEDS ORDERED: cefTRIAXone 1,000 MG in 0.9 % Sodium Chloride Mini Bag 100 ML IVPB ONE (19:42)
[2020-11-11 19:47] LABS: Alanine Aminotransferase 52 Units/L (7-52); Albumin 3.7 g/dL (3.5-5.7); Albumin/Globulin Ratio 1.5 (1.1-2.2); Alkaline Phosphatase 114 Units/L (34-104); Aspartate Amino Transferase 42 Units/L (13-39); Bilirubin,Direct 0.2 mg/dL (0.0-0.2); Bilirubin,Indirect 0.7 mg/dL (0.0-1.0); Bilirubin,Total 0.9 mg/dL (0.3-1.0); Globulin 2.4 g/dL (2.4-3.5); Total Protein 6.1 g/dL (6.4-8.9)
[2020-11-11 20:45] LABS: Influenza A PCR Negative (Negative); Influenza B PCR Negative (Negative); Resp. Syncytial Virus PCR Negative (Negative)
[2020-11-11 20:47] LABS: SARS-CoV-2 by PCR (In House) Negative (Negative)
[2020-11-11] MEDS ORDERED: Naloxone 0.4 MG/ML INJ IVP PRN (21:57)
[2020-11-11] MEDS ORDERED: Furosemide 40 MG/4 ML VIAL IVP ONE (22:00)
[2020-11-12 03:42] LABS: Basophils % 0.1 %; Eosinophils # 0.1 K/mcL (0.0-0.6); Eosinophils % 0.7 %; Hematocrit 31.8 % (37.5-50.1); Hemoglobin 10.2 g/dL (12.9-16.9); Immature Granulocytes % 0.5 % (0-4); Lymphocytes # 1.6 K/mcL (0.6-4.6); Lymphocytes % 15.9 %; Mean Corpuscular HGB Conc 32.1 g/dL (31.6-35.5); Mean Corpuscular Hemoglobin 25.2 pg (28.0-33.3); Mean Corpuscular Volume 78.7 fL (83.0-100.0); Mean Platelet Volume 9.8 fL (9.4-12.4); Monocytes # 0.7 K/mcL (0.0-1.3); Monocytes % 7.1 %; Neutrophils # 7.7 K/mcL (1.6-8.9); Platelet Count 183 K/mcL (140-400); Red Blood Count 4.04 M/mcL (4.19-5.50); Red Cell Distribution Width 18.1 % (11.5-14.5); Segmented Neutrophils % 75.7 %; White Blood Count 10.2 K/mcL (4.3-11.1)
[2020-11-12 03:48] LABS: INR 1.6; Prothrombin Time 17.8 Seconds (9.4-12.1)
[2020-11-12 04:00] LABS: BUN/Creatinine Ratio 20 (6-26); Blood Urea Nitrogen 23 mg/dL (6-20); Calcium 8.9 mg/dL (8.6-10.3); Carbon Dioxide 30 mEq/L (23-29); Chloride 100 mEq/L (98-107); Glucose 168 mg/dL (70-105); Magnesium 1.8 mg/dL (1.6-2.6); Osmolality,Calculated 294 (280-300); Phosphorous 2.7 mg/dL (2.7-4.5); Potassium 3.7 mEq/L (3.5-5.1); Sodium 138 mEq/L (136-145); eGFR For African Americans > 60 (> 60); eGFR For Non-African Americans > 60 (> 60)
[2020-11-12] MEDS: Levalbuterol Neb 0.63 MG/3 ML IH SCH ×4 (04:35→21:08)
[2020-11-12] MEDS: Loratadine 10 MG TABLET PO SCH (09:22)
[2020-11-12] MEDS: Aspirin 81 MG TAB.CHEW PO SCH (09:22)
[2020-11-12] MEDS: Metoprolol XL (24 HR) Succ 50 MG TAB.ER.24H PO SCH ×2 (09:22→19:39)
[2020-11-12] MEDS: Magnesium Oxide 400 MG TABLET PO SCH ×2 (09:23→19:39)
[2020-11-12] MEDS: Apixaban 5 MG TABLET PO SCH ×2 (09:23→19:39)
[2020-11-12] MEDS: Furosemide 40 MG TABLET PO SCH (09:23)
[2020-11-12] MEDS: Nicotine 21 MG PATCH.TD24 TD SCH (09:23)
[2020-11-12] MEDS: (Roflumilast [Daliresp] 500 MCG Tablet) PO SCH (09:26)
[2020-11-12] MEDS: (Ipratropium Bromide 15 ML Spray) NS SCH ×2 (09:26→19:38)
[2020-11-12] MEDS: Budesonide/Formoterol 160/4.5 1 PUFF INH IH SCH ×2 (10:08→21:07)
[2020-11-12] MEDS: Tiotropium 10 INH DOSE IH SCH ×2 (10:09→21:33)
[2020-11-12] MEDS: MethylPREDNISolone 40 MG/ML VIAL IVP SCH ×3 (12:19→23:17)
[2020-11-12] MEDS: Acetaminophen 325 MG TABLET PO PRN (23:17)
[2020-11-13] MEDS: Levalbuterol Neb 0.63 MG/3 ML IH SCH ×4 (03:36→21:26)
[2020-11-13] MEDS: MethylPREDNISolone 40 MG/ML VIAL IVP SCH ×4 (05:27→23:24)
[2020-11-13] MEDS: Aspirin 81 MG TAB.CHEW PO SCH (08:10)
[2020-11-13] MEDS: Metoprolol XL (24 HR) Succ 50 MG TAB.ER.24H PO SCH ×2 (08:10→20:07)
[2020-11-13] MEDS: Apixaban 5 MG TABLET PO SCH ×2 (08:10→20:07)
[2020-11-13] MEDS: Nicotine 21 MG PATCH.TD24 TD SCH (08:11)
[2020-11-13] MEDS: Magnesium Oxide 400 MG TABLET PO SCH ×2 (08:11→20:07)
[2020-11-13] MEDS: Furosemide 40 MG TABLET PO SCH (08:11)
[2020-11-13] MEDS: Loratadine 10 MG TABLET PO SCH (08:11)
[2020-11-13] MEDS: (Roflumilast [Daliresp] 500 MCG Tablet) PO SCH (08:13)
[2020-11-13] MEDS: (Ipratropium Bromide 15 ML Spray) NS SCH (08:13)
[2020-11-13] MEDS: Tiotropium 10 INH DOSE IH SCH ×2 (10:54→21:25)
[2020-11-13] MEDS: Budesonide/Formoterol 160/4.5 1 PUFF INH IH SCH ×2 (10:55→21:25)
[2020-11-13 14:03] LABS: BUN/Creatinine Ratio 22 (6-26); Blood Urea Nitrogen 23 mg/dL (6-20); Calcium 9.6 mg/dL (8.6-10.3); Carbon Dioxide 28 mEq/L (23-29); Chloride 98 mEq/L (98-107); Glucose 202 mg/dL (70-105); Osmolality,Calculated 289 (280-300); Potassium 4.1 mEq/L (3.5-5.1); Sodium 135 mEq/L (136-145); eGFR For African Americans > 60 (> 60); eGFR For Non-African Americans > 60 (> 60)
[2020-11-13] MEDS: Acetaminophen 325 MG TABLET PO PRN (20:07)
[2020-11-14] MEDS: Levalbuterol Neb 0.63 MG/3 ML IH SCH ×2 (04:00→10:15)
[2020-11-14] MEDS: MethylPREDNISolone 40 MG/ML VIAL IVP SCH ×2 (06:36→12:50)
[2020-11-14 07:25] VITALS: TEMP 97.5
[2020-11-14] MEDS: Magnesium Oxide 400 MG TABLET PO SCH (09:37)
[2020-11-14] MEDS: Aspirin 81 MG TAB.CHEW PO SCH (09:37)
[2020-11-14] MEDS: Furosemide 40 MG TABLET PO SCH (09:38)
[2020-11-14] MEDS: Apixaban 5 MG TABLET PO SCH (09:38)
[2020-11-14] MEDS: Metoprolol XL (24 HR) Succ 50 MG TAB.ER.24H PO SCH (09:38)
[2020-11-14] MEDS: Nicotine 21 MG PATCH.TD24 TD SCH (09:38)
[2020-11-14] MEDS: Loratadine 10 MG TABLET PO SCH (09:38)
[2020-11-14] MEDS: Budesonide/Formoterol 160/4.5 1 PUFF INH IH SCH (10:15)
[2020-11-14] MEDS: Tiotropium 10 INH DOSE IH SCH (10:15)
[2020-11-14 11:16] VITALS: BP 113/73; PULSE 65; O2SAT 98
[2020-11-14] MEDS ORDERED: FLU Vac QV 21-22 (6Month+)/PF 0.5 ML SYRINGE IM ONE (14:11)
== END 2020-11-14 15:28 | disposition home or self-care (01) ==
LOC: 2ANU 14:27 → EMEROOARM 14:27 → SUATTDRO 21:57 → 2ANU 22:55
PROVIDERS: ADMIT Internal Medicine; ATTEND Hospitalist

== ENCOUNTER 2020-12-01 21:45 | Inpatient (IN) ==
[2020-12-02] MEDS ORDERED: Naloxone 0.4 MG/ML INJ IVP PRN (10:59)
[2020-12-02] MEDS: predniSONE 20 MG TABLET PO SCH (12:49)
[2020-12-02] MEDS: Nicotine 14 MG PATCH.TD24 TD SCH (12:49)
[2020-12-02] MEDS: Aspirin 81 MG TAB.CHEW PO SCH (12:49)
[2020-12-02] MEDS: Furosemide 40 MG/4 ML VIAL IVP SCH ×2 (12:50→21:17)
[2020-12-02] MEDS: *HR* Amiodarone 200 MG TABLET PO SCH (12:50)
[2020-12-02] MEDS: Apixaban 5 MG TABLET PO SCH ×2 (12:50→21:18)
[2020-12-02] MEDS: Metoprolol XL (24 HR) Succ 50 MG TAB.ER.24H PO SCH ×2 (12:50→21:17)
[2020-12-02] MEDS: Ipratropium/Albuterol Neb 3 ML IH PRN (13:07)
[2020-12-02] MEDS: *HR* OxyCODONE/APAP 5/325 TABLET PO PRN ×2 (15:19→21:17)
[2020-12-02] MEDS: Ipratropium/Albuterol Neb 3 ML IH SCH ×2 (15:29→20:08)
[2020-12-02] MEDS: Budesonide/Formoterol 160/4.5 1 PUFF INH IH SCH (20:08)
[2020-12-03] MEDS: Ipratropium/Albuterol Neb 3 ML IH SCH ×4 (03:34→21:21)
[2020-12-03] MEDS: Acetaminophen 325 MG TABLET PO PRN (05:24)
[2020-12-03 06:38] LABS: Basophils % 0.1 %; Eosinophils % 0.1 %; Hematocrit 35.6 % (37.5-50.1); Hemoglobin 10.7 g/dL (12.9-16.9); Immature Granulocytes % 0.8 % (0-4); Lymphocytes # 0.6 K/mcL (0.6-4.6); Lymphocytes % 4.1 %; Mean Corpuscular HGB Conc 30.1 g/dL (31.6-35.5); Mean Corpuscular Volume 79.8 fL (83.0-100.0); Mean Platelet Volume 10.2 fL (9.4-12.4); Monocytes # 0.8 K/mcL (0.0-1.3); Monocytes % 5.4 %; Neutrophils # 12.7 K/mcL (1.6-8.9); Platelet Count 214 K/mcL (140-400); Red Blood Count 4.46 M/mcL (4.19-5.50); Red Cell Distribution Width 19.2 % (11.5-14.5); Segmented Neutrophils % 89.5 %; White Blood Count 14.2 K/mcL (4.3-11.1)
[2020-12-03 07:00] LABS: BUN/Creatinine Ratio 27 (6-26); Blood Urea Nitrogen 38 mg/dL (6-20); Calcium 8.9 mg/dL (8.6-10.3); Carbon Dioxide 34 mEq/L (23-29); Chloride 95 mEq/L (98-107); Glucose 148 mg/dL (70-105); Osmolality,Calculated 292 (280-300); Phosphorous 2.7 mg/dL (2.7-4.5); Potassium 4.7 mEq/L (3.5-5.1); Sodium 135 mEq/L (136-145); eGFR For African Americans > 60 (> 60); eGFR For Non-African Americans 52 (> 60)
[2020-12-03] MEDS: Metoprolol XL (24 HR) Succ 50 MG TAB.ER.24H PO SCH ×2 (09:39→21:21)
[2020-12-03] MEDS: Aspirin 81 MG TAB.CHEW PO SCH (09:39)
[2020-12-03] MEDS: predniSONE 20 MG TABLET PO SCH (09:39)
[2020-12-03] MEDS: *HR* Amiodarone 200 MG TABLET PO SCH (09:39)
[2020-12-03] MEDS: Apixaban 5 MG TABLET PO SCH ×2 (09:39→21:21)
[2020-12-03] MEDS: Nicotine 14 MG PATCH.TD24 TD SCH (09:40)
[2020-12-03] MEDS: Furosemide 40 MG/4 ML VIAL IVP SCH ×2 (09:40→19:37)
[2020-12-03] MEDS: Ondansetron 4 MG/2 ML VIAL IVP PRN (09:50)
[2020-12-03] MEDS: Budesonide/Formoterol 160/4.5 1 PUFF INH IH SCH ×2 (10:40→21:21)
[2020-12-03] MEDS: *HR* OxyCODONE/APAP 5/325 TABLET PO PRN ×2 (14:21→21:21)
[2020-12-03] MEDS ORDERED: Albumin 25% 25gram/100mL 25 GM/100 ML IV.SOLN IVPB ONE (18:00)
[2020-12-04 01:08] LABS: Hematocrit 28.6 % (37.5-50.1); Hemoglobin 9.2 g/dL (12.9-16.9); Immature Granulocytes % 0.8 % (0-4); Lymphocytes # 0.4 K/mcL (0.6-4.6); Lymphocytes % 2.9 %; Mean Corpuscular HGB Conc 32.2 g/dL (31.6-35.5); Mean Corpuscular Hemoglobin 25.3 pg (28.0-33.3); Mean Corpuscular Volume 78.8 fL (83.0-100.0); Mean Platelet Volume 10.1 fL (9.4-12.4); Monocytes # 0.8 K/mcL (0.0-1.3); Monocytes % 5.5 %; Neutrophils # 13.3 K/mcL (1.6-8.9); Nucleated Red Blood Cells 0.1 /100 WBC (0); Platelet Count 177 K/mcL (140-400); Red Blood Count 3.63 M/mcL (4.19-5.50); Red Cell Distribution Width 18.8 % (11.5-14.5); Segmented Neutrophils % 90.8 %; White Blood Count 14.6 K/mcL (4.3-11.1)
[2020-12-04 01:30] LABS: BUN/Creatinine Ratio 28 (6-26); Blood Urea Nitrogen 40 mg/dL (6-20); Calcium 8.5 mg/dL (8.6-10.3); Carbon Dioxide 29 mEq/L (23-29); Chloride 94 mEq/L (98-107); Glucose 187 mg/dL (70-105); Magnesium 1.8 mg/dL (1.6-2.6); Osmolality,Calculated 291 (280-300); Potassium 4.4 mEq/L (3.5-5.1); Sodium 133 mEq/L (136-145); eGFR For African Americans > 60 (> 60); eGFR For Non-African Americans 51 (> 60)
[2020-12-04] MEDS: Ipratropium/Albuterol Neb 3 ML IH SCH ×4 (03:38→20:50)
[2020-12-04] MEDS: *HR* OxyCODONE/APAP 5/325 TABLET PO PRN ×3 (03:57→19:52)
[2020-12-04] MEDS ORDERED: Regadenoson 0.4 MG/5 ML SYRINGE IVP ONE (06:36)
[2020-12-04] MEDS: Furosemide 40 MG/4 ML VIAL IVP SCH ×3 (09:36→22:30)
[2020-12-04] MEDS: predniSONE 20 MG TABLET PO SCH (09:36)
[2020-12-04] MEDS: Aspirin 81 MG TAB.CHEW PO SCH (09:36)
[2020-12-04] MEDS: Nicotine 14 MG PATCH.TD24 TD SCH (09:37)
[2020-12-04] MEDS: Apixaban 5 MG TABLET PO SCH ×2 (09:37→19:54)
[2020-12-04] MEDS: *HR* Amiodarone 200 MG TABLET PO SCH (09:37)
[2020-12-04] MEDS: Metoprolol XL (24 HR) Succ 50 MG TAB.ER.24H PO SCH ×2 (09:37→21:39)
[2020-12-04] MEDS: Budesonide/Formoterol 160/4.5 1 PUFF INH IH SCH ×2 (09:52→20:50)
[2020-12-04] MEDS ORDERED: Sennosides/Docusate Sodium TABLET PO PRN (10:51)
[2020-12-04] MEDS ORDERED: Albumin 25% 25gram/100mL 25 GM/100 ML IV.SOLN IVPB SCH (13:00)
[2020-12-04] MEDS: Albumin 25% 25gram/100mL 25 GM/100 ML IV.SOLN IVPB SCH (19:54)
[2020-12-05] MEDS: Ipratropium/Albuterol Neb 3 ML IH PRN (00:22)
[2020-12-05 01:38] LABS: Basophils % 0.1 %; Eosinophils % 0.1 %; Hematocrit 30.9 % (37.5-50.1); Hemoglobin 9.6 g/dL (12.9-16.9); Immature Granulocytes % 0.6 % (0-4); Lymphocytes # 0.4 K/mcL (0.6-4.6); Lymphocytes % 3.2 %; Mean Corpuscular HGB Conc 31.1 g/dL (31.6-35.5); Mean Corpuscular Hemoglobin 24.8 pg (28.0-33.3); Mean Corpuscular Volume 79.8 fL (83.0-100.0); Mean Platelet Volume 10.8 fL (9.4-12.4); Monocytes # 0.6 K/mcL (0.0-1.3); Neutrophils # 12.6 K/mcL (1.6-8.9); Nucleated Red Blood Cells 0.1 /100 WBC (0); Platelet Count 182 K/mcL (140-400); Red Blood Count 3.87 M/mcL (4.19-5.50); Red Cell Distribution Width 18.9 % (11.5-14.5); White Blood Count 13.7 K/mcL (4.3-11.1)
[2020-12-05 01:53] LABS: Calcium 9.1 mg/dL (8.6-10.3); Magnesium 1.9 mg/dL (1.6-2.6); Phosphorous 3.5 mg/dL (2.7-4.5); Potassium 4.5 mEq/L (3.5-5.1)
[2020-12-05] MEDS: *HR* OxyCODONE/APAP 5/325 TABLET PO PRN ×4 (03:46→22:04)
[2020-12-05] MEDS: Ipratropium/Albuterol Neb 3 ML IH SCH ×2 (03:47→09:53)
[2020-12-05] MEDS: Albumin 25% 25gram/100mL 25 GM/100 ML IV.SOLN IVPB SCH ×3 (05:33→23:58)
[2020-12-05] MEDS: Ondansetron 4 MG/2 ML VIAL IVP PRN ×3 (05:38→18:21)
[2020-12-05] MEDS: Furosemide 40 MG/4 ML VIAL IVP SCH ×2 (08:04→18:17)
[2020-12-05] MEDS: Metoprolol XL (24 HR) Succ 50 MG TAB.ER.24H PO SCH ×2 (08:05→20:02)
[2020-12-05] MEDS: Apixaban 5 MG TABLET PO SCH ×2 (08:05→20:02)
[2020-12-05] MEDS: predniSONE 20 MG TABLET PO SCH (08:05)
[2020-12-05] MEDS: *HR* Amiodarone 200 MG TABLET PO SCH (08:05)
[2020-12-05] MEDS: Aspirin 81 MG TAB.CHEW PO SCH (08:05)
[2020-12-05] MEDS: Nicotine 14 MG PATCH.TD24 TD SCH (08:05)
[2020-12-05] MEDS: Benzonatate 100 MG CAPSULE PO PRN (08:18)
[2020-12-05] MEDS: Budesonide/Formoterol 160/4.5 1 PUFF INH IH SCH ×2 (09:53→21:47)
[2020-12-05] MEDS ORDERED: Amiodarone Premix 360 MG/200 ML BAG IVC ONE (11:09)
[2020-12-05] MEDS ORDERED: metOLazone 5 MG TABLET PO ONE ×2 (11:15→20:30)
[2020-12-05] MEDS ORDERED: Furosemide 40 MG/4 ML VIAL IVP SCH (12:00)
[2020-12-05] MEDS: Levalbuterol Neb 1.25 MG/3 ML IH SCH ×2 (15:44→21:47)
[2020-12-05] MEDS: Acetaminophen 325 MG TABLET PO PRN (19:03)
[2020-12-06] MEDS: Amiodarone Premix 360 MG/200 ML BAG IVC SCH ×2 (00:38→13:06)
[2020-12-06] MEDS: Furosemide 40 MG/4 ML VIAL IVP SCH ×3 (02:09→19:58)
[2020-12-06] MEDS: Ipratropium/Albuterol Neb 3 ML IH PRN (02:09)
[2020-12-06] MEDS: Levalbuterol Neb 1.25 MG/3 ML IH SCH ×4 (03:50→21:57)
[2020-12-06] MEDS: *HR* OxyCODONE/APAP 5/325 TABLET PO PRN ×4 (04:01→23:14)
[2020-12-06 06:52] LABS: Basophils % 0.1 %; Hematocrit 29.4 % (37.5-50.1); Hemoglobin 9.3 g/dL (12.9-16.9); Immature Granulocytes % 0.7 % (0-4); Lymphocytes # 0.9 K/mcL (0.6-4.6); Lymphocytes % 6.4 %; Mean Corpuscular HGB Conc 31.6 g/dL (31.6-35.5); Mean Corpuscular Hemoglobin 25.1 pg (28.0-33.3); Mean Corpuscular Volume 79.5 fL (83.0-100.0); Mean Platelet Volume 10.1 fL (9.4-12.4); Monocytes # 0.8 K/mcL (0.0-1.3); Monocytes % 5.7 %; Platelet Count 140 K/mcL (140-400); Segmented Neutrophils % 87.1 %; White Blood Count 13.8 K/mcL (4.3-11.1)
[2020-12-06 07:20] LABS: BUN/Creatinine Ratio 29 (6-26); Blood Urea Nitrogen 41 mg/dL (6-20); Calcium 9.6 mg/dL (8.6-10.3); Carbon Dioxide 32 mEq/L (23-29); Chloride 93 mEq/L (98-107); Glucose 163 mg/dL (70-105); Osmolality,Calculated 294 (280-300); Potassium 4.1 mEq/L (3.5-5.1); Sodium 135 mEq/L (136-145); eGFR For African Americans > 60 (> 60); eGFR For Non-African Americans 52 (> 60)
[2020-12-06] MEDS: Ondansetron 4 MG/2 ML VIAL IVP PRN (07:20)
[2020-12-06] MEDS: Budesonide/Formoterol 160/4.5 1 PUFF INH IH SCH ×2 (07:59→21:57)
[2020-12-06] MEDS: Aspirin 81 MG TAB.CHEW PO SCH (09:04)
[2020-12-06] MEDS: Nicotine 14 MG PATCH.TD24 TD SCH (09:05)
[2020-12-06] MEDS: Albumin 25% 25gram/100mL 25 GM/100 ML IV.SOLN IVPB SCH (09:05)
[2020-12-06] MEDS: predniSONE 20 MG TABLET PO SCH (09:05)
[2020-12-06] MEDS: Apixaban 5 MG TABLET PO SCH ×2 (09:05→19:57)
[2020-12-06] MEDS: Metoprolol XL (24 HR) Succ 50 MG TAB.ER.24H PO SCH ×2 (09:05→19:58)
[2020-12-06] MEDS: *HR* Amiodarone 200 MG TABLET PO SCH (10:41)
[2020-12-06 14:55] LABS: Adenovirus Not Detected (Not Detect); Bordetella Pertussis Not Detected (Not Detect); Chlamydophila pneumoniae Not Detected (Not Detect); Coronavirus 229E Not Detected (Not Detect); Coronavirus HKU1 Not Detected (Not Detect); Coronavirus NL63 Not Detected (Not Detect); Coronavirus OC43 Not Detected (Not Detect); Human Metapneumovirus Not Detected (Not Detect); Human Rhinovirus/Enterovirus Not Detected (Not Detect); Influenza A Subtype 2009 H1 Not Detected (Not Detect); Influenza B Not Detected (Not Detect); Mycoplasma pneumoniae Not Detected (Not Detect); Parainfluenza Virus 1 Not Detected (Not Detect); Parainfluenza Virus 2 Not Detected (Not Detect); Parainfluenza Virus 3 Not Detected (Not Detect); Parainfluenza Virus 4 Not Detected (Not Detect); Respiratory Syncytial Virus Not Detected (Not Detect); SARS-CoV-2 Not Detected (Not Detect)
[2020-12-06] MEDS ORDERED: metOLazone 5 MG TABLET PO ONE (20:30)
[2020-12-07 02:09] LABS: Hematocrit 30.2 % (37.5-50.1); Hemoglobin 9.6 g/dL (12.9-16.9); Mean Corpuscular HGB Conc 31.8 g/dL (31.6-35.5); Mean Corpuscular Hemoglobin 25.3 pg (28.0-33.3); Mean Corpuscular Volume 79.7 fL (83.0-100.0); Platelet Count 150 K/mcL (140-400); Red Blood Count 3.79 M/mcL (4.19-5.50); Red Cell Distribution Width 19.4 % (11.5-14.5); White Blood Count 19.6 K/mcL (4.3-11.1)
[2020-12-07 02:32] LABS: BUN/Creatinine Ratio 32 (6-26); Blood Urea Nitrogen 43 mg/dL (6-20); Calcium 9.6 mg/dL (8.6-10.3); Carbon Dioxide 30 mEq/L (23-29); Chloride 94 mEq/L (98-107); Glucose 161 mg/dL (70-105); Osmolality,Calculated 292 (280-300); Sodium 134 mEq/L (136-145); eGFR For African Americans > 60 (> 60); eGFR For Non-African Americans 55 (> 60)
[2020-12-07] MEDS: Levalbuterol Neb 1.25 MG/3 ML IH SCH ×4 (04:01→20:34)
[2020-12-07] MEDS: *HR* OxyCODONE/APAP 5/325 TABLET PO PRN ×4 (05:23→23:54)
[2020-12-07] MEDS: Aspirin 81 MG TAB.CHEW PO SCH (09:42)
[2020-12-07] MEDS: predniSONE 20 MG TABLET PO SCH (09:43)
[2020-12-07] MEDS: *HR* Amiodarone 200 MG TABLET PO SCH (09:43)
[2020-12-07] MEDS: Metoprolol XL (24 HR) Succ 50 MG TAB.ER.24H PO SCH ×2 (09:43→19:48)
[2020-12-07] MEDS: Apixaban 5 MG TABLET PO SCH ×2 (09:43→19:48)
[2020-12-07] MEDS: Furosemide 40 MG/4 ML VIAL IVP SCH ×2 (09:43→19:48)
[2020-12-07] MEDS: Nicotine 14 MG PATCH.TD24 TD SCH (09:44)
[2020-12-07] MEDS: Budesonide/Formoterol 160/4.5 1 PUFF INH IH SCH ×2 (10:22→20:34)
[2020-12-07] MEDS: Acetaminophen 325 MG TABLET PO PRN (14:41)
[2020-12-08] MEDS: Levalbuterol Neb 1.25 MG/3 ML IH SCH ×2 (03:46→10:37)
[2020-12-08 07:19] LABS: BUN/Creatinine Ratio 38 (6-26); Blood Urea Nitrogen 45 mg/dL (6-20); Carbon Dioxide 33 mEq/L (23-29); Chloride 91 mEq/L (98-107); Glucose 196 mg/dL (70-105); Osmolality,Calculated 293 (280-300); Potassium 3.9 mEq/L (3.5-5.1); Sodium 133 mEq/L (136-145); eGFR For African Americans > 60 (> 60); eGFR For Non-African Americans > 60 (> 60)
[2020-12-08] MEDS: Furosemide 40 MG/4 ML VIAL IVP SCH (09:12)
[2020-12-08] MEDS: predniSONE 20 MG TABLET PO SCH (09:15)
[2020-12-08] MEDS: Metoprolol XL (24 HR) Succ 50 MG TAB.ER.24H PO SCH ×2 (09:15→21:18)
[2020-12-08] MEDS: *HR* OxyCODONE/APAP 5/325 TABLET PO PRN ×3 (09:15→21:22)
[2020-12-08] MEDS: Apixaban 5 MG TABLET PO SCH ×2 (09:16→21:18)
[2020-12-08] MEDS: Spironolactone 25 MG TABLET PO SCH (09:16)
[2020-12-08] MEDS: *HR* Amiodarone 200 MG TABLET PO SCH (09:16)
[2020-12-08] MEDS: Aspirin 81 MG TAB.CHEW PO SCH (09:16)
[2020-12-08] MEDS: Nicotine 14 MG PATCH.TD24 TD SCH (09:17)
[2020-12-08 09:57] LABS: Basophils % 0.1 %; Eosinophils % 0.1 %; Hematocrit 35.2 % (37.5-50.1); Hemoglobin 10.7 g/dL (12.9-16.9); Immature Granulocytes % 0.6 % (0-4); Lymphocytes # 0.5 K/mcL (0.6-4.6); Lymphocytes % 2.9 %; Mean Corpuscular HGB Conc 30.4 g/dL (31.6-35.5); Mean Corpuscular Hemoglobin 24.4 pg (28.0-33.3); Mean Corpuscular Volume 80.4 fL (83.0-100.0); Mean Platelet Volume 10.3 fL (9.4-12.4); Monocytes # 0.8 K/mcL (0.0-1.3); Monocytes % 4.2 %; Neutrophils # 17.2 K/mcL (1.6-8.9); Platelet Count 151 K/mcL (140-400); Red Blood Count 4.38 M/mcL (4.19-5.50); Red Cell Distribution Width 19.6 % (11.5-14.5); Segmented Neutrophils % 92.1 %; White Blood Count 18.7 K/mcL (4.3-11.1)
[2020-12-08] MEDS: Budesonide/Formoterol 160/4.5 1 PUFF INH IH SCH ×2 (11:09→20:23)
[2020-12-08] MEDS: Ipratropium/Albuterol Neb 3 ML IH SCH ×4 (11:09→23:52)
[2020-12-08] MEDS: Furosemide 40 MG TABLET PO SCH (15:22)
[2020-12-08] MEDS: Sennosides/Docusate Sodium TABLET PO SCH (21:18)
[2020-12-09] MEDS: *HR* OxyCODONE/APAP 5/325 TABLET PO PRN ×3 (03:08→18:25)
[2020-12-09] MEDS: Ipratropium/Albuterol Neb 3 ML IH SCH ×5 (04:11→20:36)
[2020-12-09] MEDS: Budesonide/Formoterol 160/4.5 1 PUFF INH IH SCH ×2 (07:38→20:36)
[2020-12-09] MEDS: Sennosides/Docusate Sodium TABLET PO SCH ×2 (08:09→22:19)
[2020-12-09] MEDS: *HR* Amiodarone 200 MG TABLET PO SCH (08:09)
[2020-12-09] MEDS: Apixaban 5 MG TABLET PO SCH ×2 (08:09→22:18)
[2020-12-09] MEDS: Furosemide 40 MG TABLET PO SCH ×2 (08:10→18:25)
[2020-12-09] MEDS: predniSONE 20 MG TABLET PO SCH (08:11)
[2020-12-09] MEDS: Metoprolol XL (24 HR) Succ 50 MG TAB.ER.24H PO SCH ×2 (08:11→22:18)
[2020-12-09] MEDS: Nicotine 14 MG PATCH.TD24 TD SCH (08:12)
[2020-12-09] MEDS: Aspirin 81 MG TAB.CHEW PO SCH (08:12)
[2020-12-09] MEDS: Spironolactone 25 MG TABLET PO SCH (08:12)
[2020-12-09] MEDS: Benzonatate 100 MG CAPSULE PO PRN (22:19)
[2020-12-10] MEDS: Ipratropium/Albuterol Neb 3 ML IH SCH ×7 (00:09→23:55)
[2020-12-10] MEDS ORDERED: polyethylene glycoL 3350 17 GM POWD.PACK PO PRN (01:48)
[2020-12-10] MEDS ORDERED: *HR* Metoprolol 5 MG/5 ML VIAL IVP ONE (04:08)
[2020-12-10 04:23] LABS: BUN/Creatinine Ratio 32 (6-26); Blood Urea Nitrogen 35 mg/dL (6-20); Calcium 9.3 mg/dL (8.6-10.3); Carbon Dioxide 26 mEq/L (23-29); Chloride 104 mEq/L (98-107); Glucose 136 mg/dL (70-105); Osmolality,Calculated 298 (280-300); Potassium 4.2 mEq/L (3.5-5.1); Sodium 139 mEq/L (136-145); eGFR For African Americans > 60 (> 60); eGFR For Non-African Americans > 60 (> 60)
[2020-12-10] MEDS: Ondansetron 4 MG/2 ML VIAL IVP PRN (04:24)
[2020-12-10] MEDS ORDERED: 0.9 % Sodium Chloride 1,000 ML IVC SCH (06:15)
[2020-12-10] MEDS: MetroNIDAZOLE 500 MG/100 ML 500 MG/100 ML BAG IVPB SCH ×3 (06:41→23:26)
[2020-12-10 06:56] LABS: Hematocrit 37.8 % (37.5-50.1); Hemoglobin 12.2 g/dL (12.9-16.9); Mean Corpuscular HGB Conc 32.3 g/dL (31.6-35.5); Mean Corpuscular Hemoglobin 25.4 pg (28.0-33.3); Mean Corpuscular Volume 78.8 fL (83.0-100.0); Mean Platelet Volume 10.4 fL (9.4-12.4); Platelet Count 150 K/mcL (140-400); Red Cell Distribution Width 20.6 % (11.5-14.5)
[2020-12-10] MEDS: Budesonide/Formoterol 160/4.5 1 PUFF INH IH SCH ×2 (07:34→20:18)
[2020-12-10] MEDS ORDERED: *HR* Etomidate 40 MG/20 ML VIAL IVP ONE (08:08)
[2020-12-10] MEDS ORDERED: Ondansetron 4 MG/2 ML VIAL ONE (08:11)
[2020-12-10] MEDS ORDERED: Lidocaine HCL 4 ML Topical Solution (Laryng-O-Jet Kit Sterile Pak) TP ONE (08:14)
[2020-12-10] MEDS ORDERED: Lidocaine -MPF 2% 5 ML VIAL ONE (08:14)
[2020-12-10] MEDS ORDERED: *HR* Rocuronium Bromide 50 MG/5 ML VIAL ONE ×2 (08:14→09:55)
[2020-12-10] MEDS ORDERED: *HR* Succinylcholine 200 MG/10 ML VIAL IVP ONE (08:19)
[2020-12-10] MEDS ORDERED: Acetaminophen IV 1,000 MG/100 ML BAG IVPB ONE (08:22)
[2020-12-10] MEDS ORDERED: *HR* HYDROmorphone PF 0.5 MG/0.5 ML SYRINGE IVP PRN (08:22)
[2020-12-10] MEDS ORDERED: Famotidine 20 MG/2 ML VIAL IVP ONE (08:22)
[2020-12-10] MEDS ORDERED: *HR* FentaNYL (PF) 100 MCG/2 ML VIAL IVP PRN (08:22)
[2020-12-10] MEDS ORDERED: Ondansetron 4 MG/2 ML VIAL IVP PRN (08:22)
[2020-12-10] MEDS ORDERED: Albumin Human 5% 12.5 GM/250 ML IV.SOLN ONE ×3 (08:24→12:23)
[2020-12-10] MEDS ORDERED: *HR* FentaNYL (PF) 100 MCG/2 ML VIAL ONE ×4 (08:27→15:00)
[2020-12-10] MEDS ORDERED: EPHEDrine 50 MG/ML VIAL ONE ×2 (08:27→11:36)
[2020-12-10] MEDS ORDERED: Famotidine 20 MG/2 ML VIAL ONE (08:36)
[2020-12-10] MEDS ORDERED: *HR* Phenylephrine 10 MG/ML VIAL ONE (08:36)
[2020-12-10] MEDS ORDERED: *HR* Magnesium Sulfate 1 GM/2 ML VIAL ONE (09:20)
[2020-12-10] MEDS ORDERED: *HR* Norepinephrine 4 MG/4 ML VIAL IVC ONE (09:26)
[2020-12-10 09:41] LABS: ABG Base Excess -2 mEq/L (-2 to 3); ABG Chloride 97 mEq/L (98-107); ABG Glucose 190 mg/dL (60-95); ABG HCO3 25 mEq/L (21-27); ABG Ionized Calcium 1.42 mmol/L (1.15-1.35); ABG Oxygen Saturation 100 % (95-98); ABG PCO2 51 mmHg (35-45); ABG PO2 341 mmHg (85-104); ABG TCO2 27 mEq/L (20-26)
[2020-12-10] MEDS ORDERED: Iron Sucrose Complex 200 MG in 0.9 % Sodium Chloride 100 ML IVPB ONE (10:00)
[2020-12-10 10:32] LABS: ABG Base Excess -1 mEq/L (-2 to 3); ABG Chloride 100 mEq/L (98-107); ABG Glucose 206 mg/dL (60-95); ABG HCO3 26 mEq/L (21-27); ABG Oxygen Saturation 100 % (95-98); ABG PCO2 51 mmHg (35-45); ABG PH 7.31 pH Units (7.32-7.45); ABG PO2 392 mmHg (85-104); ABG TCO2 27 mEq/L (20-26)
[2020-12-10] MEDS ORDERED: Sugammadex Sodium 200 MG/2 ML VIAL IV ONE (11:22)
[2020-12-10] MEDS ORDERED: *HR* Vasopressin 20 UNIT/ML VIAL ONE (11:38)
[2020-12-10] MEDS ORDERED: Amiodarone 150 MG in D5% in Water 100 ML IVPB ONE (11:43)
[2020-12-10] MEDS ORDERED: Amiodarone Premix 150 MG/100 ML BAG IVPB ONE (11:48)
[2020-12-10] MEDS ORDERED: *HR* Midazolam HCl 2 MG/2 ML VIAL ONE (12:29)
[2020-12-10 13:47] LABS: INR 3.5; Prothrombin Time 39.1 Seconds (9.4-12.1)
[2020-12-10 13:48] LABS: VBG HCO3 29 mEq/L (21-27); VBG PCO2 74 mmHg (41-51); VBG PO2 199 mmHg (25-50)
[2020-12-10 13:50] LABS: Activated Partial Thrombo Time 39.1 Seconds (26.0-36.0)
[2020-12-10 14:04] LABS: Albumin 2.8 g/dL (3.5-5.7); Albumin/Globulin Ratio 3.1 (1.1-2.2); Bilirubin,Total 1.7 mg/dL (0.3-1.0); Calcium 8.1 mg/dL (8.6-10.3); Globulin 0.9 g/dL (2.4-3.5); Potassium 6.8 mEq/L (3.5-5.1); Total Protein 3.7 g/dL (6.4-8.9)
[2020-12-10 14:05] LABS: Troponin I 0.19 ng/mL (< 0.04)
[2020-12-10] MEDS: predniSONE 20 MG TABLET PO SCH (14:57)
[2020-12-10] MEDS: Nicotine 14 MG PATCH.TD24 TD SCH (14:57)
[2020-12-10] MEDS: *HR* Amiodarone 200 MG TABLET PO SCH (14:57)
[2020-12-10] MEDS: Spironolactone 25 MG TABLET PO SCH (14:57)
[2020-12-10] MEDS: Metoprolol XL (24 HR) Succ 50 MG TAB.ER.24H PO SCH (14:58)
[2020-12-10] MEDS ORDERED: Artificial Tears SOLN 15 ML BOTTLE BOTH EYES PRN (15:01)
[2020-12-10] MEDS ORDERED: *HR* Midazolam HCl 5 MG/5 ML VIAL IVP ONE (15:01)
[2020-12-10 15:24] LABS: ABG Base Excess -10 mEq/L (-2 to 3); ABG HCO3 20 mEq/L (21-27); ABG Oxygen Saturation 100 % (95-98); ABG PCO2 63 mmHg (35-45); ABG PO2 468 mmHg (85-104); ABG TCO2 22 mEq/L (20-26); Blood Gas Modality AF; Blood Gas VT 500 cc
[2020-12-10] MEDS: Midazolam HCl 50 MG/100 ML IV.SOLN IVC SCH (15:50)
[2020-12-10] MEDS: FentaNYL (PF) 1,000 MCG/100 ML IV.SOLN IVC SCH (16:11)
[2020-12-10] MEDS: Norepinephrine 4 MG/254 ML IV.SOLN IVC SCH ×2 (16:24→20:10)
[2020-12-10 16:32] LABS: Hematocrit 28.1 % (37.5-50.1); Hemoglobin 8.4 g/dL (12.9-16.9); Mean Corpuscular HGB Conc 29.9 g/dL (31.6-35.5); Mean Corpuscular Hemoglobin 25.4 pg (28.0-33.3); Mean Corpuscular Volume 84.9 fL (83.0-100.0); Mean Platelet Volume 10.5 fL (9.4-12.4); Platelet Count 118 K/mcL (140-400); Red Blood Count 3.31 M/mcL (4.19-5.50); Red Cell Distribution Width 20.5 % (11.5-14.5)
[2020-12-10 16:33] LABS: White Blood Count 15.7 K/mcL (4.3-11.1)
[2020-12-10 16:50] LABS: Calcium 8.3 mg/dL (8.6-10.3); Magnesium 3.1 mg/dL (1.6-2.6); Potassium 5.7 mEq/L (3.5-5.1)
[2020-12-10] MEDS ORDERED: Micafungin 100 MG in 0.9 % Sodium Chloride Mini Bag 100 ML IVPB SCH (17:00)
[2020-12-10] MEDS ORDERED: Calcium Gluconate 1gm/50mL 1 GM/50 ML BAG IVPB ONE (17:18)
[2020-12-10] MEDS ORDERED: Insulin LISPRO 300 UNITS/3 ML VIAL SUBQ ONE (17:20)
[2020-12-10] MEDS ORDERED: *HR* Dextrose 50 % in Water (Syg) 50 ML SYRINGE IVP ONE (17:21)
[2020-12-10] MEDS ORDERED: *HR* Dextrose 50 % in Water (Syg) 50 ML SYRINGE IVP PRN (17:22)
[2020-12-10] MEDS ORDERED: D5% in Water 1,000 ML IVC PRN (17:22)
[2020-12-10] MEDS ORDERED: Dextrose Gel 15 GM/37.5 ML TUBE PO PRN ×2 (17:22)
[2020-12-10] MEDS: Piperacillin/Tazobactam 3.375 GM in 0.9 % Sodium Chloride Mini Bag 100 ML IVPB SCH ×2 (17:31→23:26)
[2020-12-10] MEDS: Pantoprazole 40 MG VIAL IVP SCH (17:32)
[2020-12-10] MEDS: Artificial Tears SOLN 15 ML BOTTLE BOTH EYES SCH ×4 (17:32→23:45)
[2020-12-10] MEDS ORDERED: Insulin Human Regular 10 UNIT in 0.9 % Sodium Chloride 10 ML IV ONE (18:01)
[2020-12-10] MEDS ORDERED: Amiodarone Premix 360 MG/200 ML BAG IVC ONE (18:27)
[2020-12-10 18:54] LABS: ABG Base Excess -9 mEq/L (-2 to 3); ABG HCO3 20 mEq/L (21-27); ABG Oxygen Saturation 97 % (95-98); ABG PCO2 55 mmHg (35-45); ABG PH 7.17 pH Units (7.32-7.45); ABG PO2 115 mmHg (85-104); ABG TCO2 22 mEq/L (20-26); Blood Gas Modality AF; Blood Gas VT 500 cc
[2020-12-10] MEDS: Insulin LISPRO 300 UNITS/3 ML VIAL SUBQ SCH ×2 (18:55→23:44)
[2020-12-10] MEDS: Sodium Bicarbonate 150 MEQ in D5% in Water 1,000 ML IVC SCH (19:09)
[2020-12-10] MEDS: Chlorhexidine Rinse 15 ML MOUTHWASH MM SCH (20:13)
[2020-12-10 21:24] LABS: ABG Base Excess -5 mEq/L (-2 to 3); ABG HCO3 22 mEq/L (21-27); ABG Oxygen Saturation 96 % (95-98); ABG PCO2 48 mmHg (35-45); ABG PH 7.26 pH Units (7.32-7.45); ABG PO2 98 mmHg (85-104); ABG TCO2 23 mEq/L (20-26); Blood Gas Modality AF; Blood Gas VT 500 cc
[2020-12-10 21:27] LABS: VBG Ionized Calcium 1.08 mmol/L (1.15-1.35)
[2020-12-10] MEDS ORDERED: Hydrocortisone Sodium Succ 100 MG/2 ML VIAL IVP ONE (21:45)
[2020-12-10 21:54] LABS: Troponin I 0.43 ng/mL (< 0.04)
[2020-12-10 21:55] LABS: BUN/Creatinine Ratio 35 (6-26); Blood Urea Nitrogen 77 mg/dL (6-20); Calcium 8.2 mg/dL (8.6-10.3); Carbon Dioxide 22 mEq/L (23-29); Chloride 99 mEq/L (98-107); Glucose 238 mg/dL (70-105); Osmolality,Calculated 317 (280-300); Potassium 4.8 mEq/L (3.5-5.1); Sodium 138 mEq/L (136-145); eGFR For African Americans 37 (> 60); eGFR For Non-African Americans 31 (> 60)
[2020-12-10 22:24] LABS: Alanine Aminotransferase 2669 Units/L (7-52); Alkaline Phosphatase 80 Units/L (34-104); Aspartate Amino Transferase > 3000 Units/L (13-39); Bilirubin,Total 3.5 mg/dL (0.3-1.0)
[2020-12-10] MEDS: Hydrocortisone Sodium Succ 100 MG/2 ML VIAL IVP SCH (23:43)
[2020-12-11] MEDS: FentaNYL (PF) 1,000 MCG/100 ML IV.SOLN IVC SCH ×3 (00:05→20:45)
[2020-12-11] MEDS ORDERED: Amiodarone Premix 360 MG/200 ML BAG IVC SCH ×2 (00:27→08:26)
[2020-12-11] MEDS: Midazolam HCl 50 MG/100 ML IV.SOLN IVC SCH ×2 (02:28→15:35)
[2020-12-11] MEDS: Norepinephrine 4 MG/254 ML IV.SOLN IVC SCH ×3 (02:45→13:38)
[2020-12-11] MEDS: Ipratropium/Albuterol Neb 3 ML IH SCH ×6 (03:39→23:31)
[2020-12-11 04:22] LABS: Hemoglobin 8.9 g/dL (12.9-16.9); Mean Corpuscular HGB Conc 30.7 g/dL (31.6-35.5); Mean Corpuscular Hemoglobin 24.9 pg (28.0-33.3); Mean Platelet Volume 10.7 fL (9.4-12.4); Red Blood Count 3.58 M/mcL (4.19-5.50); Red Cell Distribution Width 19.9 % (11.5-14.5); White Blood Count 11.1 K/mcL (4.3-11.1)
[2020-12-11 04:23] LABS: Platelet Count 84 K/mcL (140-400)
[2020-12-11 04:27] LABS: ABG Base Excess -5 mEq/L (-2 to 3); ABG HCO3 22 mEq/L (21-27); ABG Oxygen Saturation 97 % (95-98); ABG PCO2 43 mmHg (35-45); ABG PH 7.31 pH Units (7.32-7.45); ABG PO2 105 mmHg (85-104); ABG TCO2 23 mEq/L (20-26); Blood Gas Modality AF; Blood Gas VT 500 cc
[2020-12-11 04:43] LABS: Calcium 7.6 mg/dL (8.6-10.3); Magnesium 2.5 mg/dL (1.6-2.6); Phosphorous 8.2 mg/dL (2.7-4.5); Potassium 4.4 mEq/L (3.5-5.1); Troponin I 0.47 ng/mL (< 0.04)
[2020-12-11] MEDS ORDERED: Calcium Gluconate 1gm/50mL 1 GM/50 ML BAG IVPB PRN (04:58)
[2020-12-11] MEDS: MetroNIDAZOLE 500 MG/100 ML 500 MG/100 ML BAG IVPB SCH (05:20)
[2020-12-11] MEDS: Hydrocortisone Sodium Succ 100 MG/2 ML VIAL IVP SCH ×4 (05:20→23:49)
[2020-12-11] MEDS: Insulin LISPRO 300 UNITS/3 ML VIAL SUBQ SCH ×4 (05:22→19:48)
[2020-12-11] MEDS: Chlorhexidine Rinse 15 ML MOUTHWASH MM SCH ×3 (07:24→19:38)
[2020-12-11] MEDS: Nicotine 14 MG PATCH.TD24 TD SCH (07:24)
[2020-12-11] MEDS: Pantoprazole 40 MG VIAL IVP SCH (07:25)
[2020-12-11] MEDS: Piperacillin/Tazobactam 3.375 GM in 0.9 % Sodium Chloride Mini Bag 100 ML IVPB SCH ×3 (07:25→23:49)
[2020-12-11] MEDS: Artificial Tears SOLN 15 ML BOTTLE BOTH EYES SCH ×4 (07:26→19:38)
[2020-12-11] MEDS: Budesonide/Formoterol 160/4.5 1 PUFF INH IH SCH ×2 (07:55→19:51)
[2020-12-11] MEDS ORDERED: Acetaminophen 325 MG TABLET PO PRN (08:26)
[2020-12-11] MEDS ORDERED: Ondansetron 4 MG/2 ML VIAL IVP PRN (08:26)
[2020-12-11] MEDS ORDERED: Naloxone 0.4 MG/ML INJ IVP PRN (08:26)
[2020-12-11] MEDS ORDERED: Amiodarone Premix 150 MG/100 ML BAG IVPB ONE (08:26)
[2020-12-11] MEDS ORDERED: Artificial Tears SOLN 15 ML BOTTLE BOTH EYES PRN (08:26)
[2020-12-11] MEDS ORDERED: *HR* Dextrose 50 % in Water (Syg) 50 ML SYRINGE IVP PRN (08:26)
[2020-12-11] MEDS ORDERED: Dextrose Gel 15 GM/37.5 ML TUBE PO PRN ×2 (08:26)
[2020-12-11] MEDS ORDERED: D5% in Water 1,000 ML IVC PRN (08:26)
[2020-12-11] MEDS ORDERED: Iron Sucrose Complex 200 MG in 0.9 % Sodium Chloride 100 ML IVPB ONE (08:26)
[2020-12-11] MEDS: Vasopressin 40 UNIT in D5% in Water 100 ML IVC SCH (09:40)
[2020-12-11 09:58] LABS: INR 4.7; Prothrombin Time 51.8 Seconds (9.4-12.1)
[2020-12-11] MEDS: Sodium Bicarbonate 150 MEQ in D5% in Water 1,000 ML IVC SCH ×2 (11:05→11:29)
[2020-12-11] MEDS ORDERED: D5 IVC ONE ×3 (12:00→19:00)
[2020-12-11] MEDS ORDERED: 0.9 % Sodium Chloride 250 ML ONE ×2 (12:00→16:23)
[2020-12-11] MEDS ORDERED: WATER IVC ONE ×3 (12:00→19:00)
[2020-12-11] MEDS ORDERED: ACETYLCYSTEINE IVC ONE ×3 (12:00→19:00)
[2020-12-11 12:17] LABS: ABG Ionized Calcium 0.92 mmol/L (1.15-1.35)
[2020-12-11] MEDS ORDERED: Calcium Chloride 1,000 MG in 0.9 % Sodium Chloride 100 ML IVPB ONE (13:08)
[2020-12-11] MEDS ORDERED: MetroNIDAZOLE 500 MG/100 ML 500 MG/100 ML BAG IVPB SCH (14:00)
[2020-12-11 14:15] LABS: Alanine Aminotransferase 3768 Units/L (7-52); Albumin 2.8 g/dL (3.5-5.7); Albumin/Globulin Ratio 2.2 (1.1-2.2); Alkaline Phosphatase 94 Units/L (34-104); Aspartate Amino Transferase > 3000 Units/L (13-39); BUN/Creatinine Ratio 32 (6-26); Bilirubin,Total 2.8 mg/dL (0.3-1.0); Blood Urea Nitrogen 84 mg/dL (6-20); Calcium 7.1 mg/dL (8.6-10.3); Carbon Dioxide 27 mEq/L (23-29); Chloride 98 mEq/L (98-107); Globulin 1.3 g/dL (2.4-3.5); Glucose 237 mg/dL (70-105); Magnesium 2.4 mg/dL (1.6-2.6); Osmolality,Calculated 319 (280-300); Phosphorous 8.1 mg/dL (2.7-4.5); Potassium 5.1 mEq/L (3.5-5.1); Sodium 138 mEq/L (136-145); Total Protein 4.1 g/dL (6.4-8.9); eGFR For African Americans 30 (> 60); eGFR For Non-African Americans 25 (> 60)
[2020-12-11] MEDS ORDERED: Perflutren Lipid Microsphere 1.3 ML in 0.9 % Sodium Chloride 8.7 ML IVP PRN (14:36)
[2020-12-11 15:25] LABS: Alanine Aminotransferase 3868 Units/L (7-52); Albumin 2.7 g/dL (3.5-5.7); Albumin/Globulin Ratio 2.5 (1.1-2.2); Alkaline Phosphatase 97 Units/L (34-104); Aspartate Amino Transferase > 3000 Units/L (13-39); Bilirubin,Direct 1.9 mg/dL (0.0-0.2); Bilirubin,Total 2.9 mg/dL (0.3-1.0); Globulin 1.1 g/dL (2.4-3.5); Total Protein 3.8 g/dL (6.4-8.9)
[2020-12-11] MEDS: Micafungin 100 MG in 0.9 % Sodium Chloride Mini Bag 100 ML IVPB SCH (16:00)
[2020-12-11] MEDS ORDERED: Insulin LISPRO 300 UNITS/3 ML VIAL SUBQ SCH (18:30)
[2020-12-11 20:33] LABS: ABG Ionized Calcium 0.83 mmol/L (1.15-1.35)
[2020-12-11 21:01] LABS: Calcium 6.7 mg/dL (8.6-10.3); Potassium 4.7 mEq/L (3.5-5.1); Troponin I 0.46 ng/mL (< 0.04)
[2020-12-11] MEDS ORDERED: CALCIUM CHLORIDE IVPB ONE (21:15)
[2020-12-11] MEDS ORDERED: SODIUM CHLORIDE 0.9% IVPB ONE (21:15)
[2020-12-12] MEDS: Midazolam HCl 50 MG/100 ML IV.SOLN IVC SCH ×2 (00:50→14:48)
[2020-12-12 00:55] LABS: Amorphous Sediment,Urine Few per hpf (None-Few); Bacteria,Urine Few per hpf (None-Few); Bilirubin,Urine Negative (Negative); Blood,Urine Large (Negative); Clarity,Urine Turbid (Clear); Color,Urine Yellow (Yellow); Glucose,Urine (UA) 500 mg/dL (Normal); Ketones,Urine 10 mg/dL (Negative); Leukocyte Esterase,Urine Small (Negative); Mucus,Urine Few per lpf (None-Few); Nitrite,Urine Negative (Negative); Protein,Urine 70 mg/dL (Neg-Trace); RBC,Urine TNTC per hpf (0-3); Specific Gravity,Urine 1.016 (1.010-1.025); Squamous Epithelial Cell,Urine Few per hpf (None-Few); Urobilinogen,Urine Normal (Normal); WBC,Urine 50-100 per hpf (0-3)
[2020-12-12] MEDS: Insulin LISPRO 300 UNITS/3 ML VIAL SUBQ SCH ×6 (01:24→20:26)
[2020-12-12] MEDS: Artificial Tears SOLN 15 ML BOTTLE BOTH EYES SCH ×6 (01:25→19:51)
[2020-12-12] MEDS: Vasopressin 40 UNIT in D5% in Water 100 ML IVC SCH ×2 (01:27→18:35)
[2020-12-12] MEDS: Ipratropium/Albuterol Neb 3 ML IH SCH ×6 (04:06→23:13)
[2020-12-12 04:12] LABS: ABG Base Excess -1 mEq/L (-2 to 3); ABG HCO3 26 mEq/L (21-27); ABG Oxygen Saturation 96 % (95-98); ABG PCO2 49 mmHg (35-45); ABG PH 7.33 pH Units (7.32-7.45); ABG PO2 85 mmHg (85-104); ABG TCO2 27 mEq/L (20-26); Blood Gas VT 500 cc
[2020-12-12 04:48] LABS: Hematocrit 22.8 % (37.5-50.1); Hemoglobin 7.4 g/dL (12.9-16.9); Immature Platelets 4.4 % (1.1-6.1); Mean Corpuscular HGB Conc 32.5 g/dL (31.6-35.5); Mean Corpuscular Hemoglobin 25.1 pg (28.0-33.3); Mean Corpuscular Volume 77.3 fL (83.0-100.0); Mean Platelet Volume 11.3 fL (9.4-12.4); Red Blood Count 2.95 M/mcL (4.19-5.50); Red Cell Distribution Width 19.8 % (11.5-14.5); White Blood Count 6.9 K/mcL (4.3-11.1)
[2020-12-12] MEDS: FentaNYL (PF) 1,000 MCG/100 ML IV.SOLN IVC SCH ×3 (05:00→23:15)
[2020-12-12 05:46] LABS: Albumin 2.5 g/dL (3.5-5.7); Albumin/Globulin Ratio 1.8 (1.1-2.2); Bilirubin,Total 2.1 mg/dL (0.3-1.0); Calcium 7.2 mg/dL (8.6-10.3); Globulin 1.4 g/dL (2.4-3.5); Magnesium 2.1 mg/dL (1.6-2.6); Phosphorous 7.2 mg/dL (2.7-4.5); Potassium 4.6 mEq/L (3.5-5.1); Total Protein 3.9 g/dL (6.4-8.9)
[2020-12-12] MEDS: Hydrocortisone Sodium Succ 100 MG/2 ML VIAL IVP SCH ×3 (05:47→18:38)
[2020-12-12] MEDS: Budesonide/Formoterol 160/4.5 1 PUFF INH IH SCH ×2 (07:58→19:54)
[2020-12-12] MEDS: Nicotine 14 MG PATCH.TD24 TD SCH (08:09)
[2020-12-12] MEDS: Pantoprazole 40 MG VIAL IVP SCH (08:10)
[2020-12-12] MEDS: Chlorhexidine Rinse 15 ML MOUTHWASH MM SCH ×2 (08:24→19:55)
[2020-12-12] MEDS: Piperacillin/Tazobactam 3.375 GM in 0.9 % Sodium Chloride Mini Bag 100 ML IVPB SCH ×2 (08:29→16:12)
[2020-12-12 10:27] LABS: INR 5.1; Prothrombin Time 55.7 Seconds (9.4-12.1)
[2020-12-12] MEDS: Norepinephrine 4 MG/254 ML IV.SOLN IVC SCH ×2 (11:12→22:50)
[2020-12-12] MEDS: Insulin DETEMIR 100 UNIT/ML X5UNITS SUBQ SCH ×2 (12:16→20:27)
[2020-12-12] MEDS: Micafungin 100 MG in 0.9 % Sodium Chloride Mini Bag 100 ML IVPB SCH (16:21)
[2020-12-12] MEDS: Sodium Bicarbonate 150 MEQ in D5% in Water 1,000 ML IVC SCH (17:44)
[2020-12-12 19:47] LABS: ABG Ionized Calcium 0.82 mmol/L (1.15-1.35)
[2020-12-12 20:24] LABS: Calcium 6.8 mg/dL (8.6-10.3); Magnesium 2.1 mg/dL (1.6-2.6); Phosphorous 6.3 mg/dL (2.7-4.5); Potassium 4.7 mEq/L (3.5-5.1)
[2020-12-12] MEDS: Calcium Chloride 1,000 MG in 0.9 % Sodium Chloride 100 ML IVPB SCH ×2 (21:22→22:48)
[2020-12-13] MEDS: Hydrocortisone Sodium Succ 100 MG/2 ML VIAL IVP SCH ×5 (00:25→23:36)
[2020-12-13] MEDS: Insulin LISPRO 300 UNITS/3 ML VIAL SUBQ SCH ×7 (00:26→23:49)
[2020-12-13] MEDS: Artificial Tears SOLN 15 ML BOTTLE BOTH EYES SCH ×7 (00:26→23:35)
[2020-12-13] MEDS: Piperacillin/Tazobactam 3.375 GM in 0.9 % Sodium Chloride Mini Bag 100 ML IVPB SCH ×4 (00:30→23:36)
[2020-12-13] MEDS: Ipratropium/Albuterol Neb 3 ML IH SCH ×6 (02:46→23:55)
[2020-12-13] MEDS: Midazolam HCl 50 MG/100 ML IV.SOLN IVC SCH ×2 (03:32→17:36)
[2020-12-13 04:25] LABS: Hematocrit 22.7 % (37.5-50.1); Hemoglobin 7.6 g/dL (12.9-16.9); Mean Corpuscular HGB Conc 33.5 g/dL (31.6-35.5); Mean Corpuscular Hemoglobin 25.2 pg (28.0-33.3); Mean Corpuscular Volume 75.4 fL (83.0-100.0); Mean Platelet Volume 10.6 fL (9.4-12.4); Red Blood Count 3.01 M/mcL (4.19-5.50); Red Cell Distribution Width 19.8 % (11.5-14.5); White Blood Count 9.9 K/mcL (4.3-11.1)
[2020-12-13 04:26] LABS: Platelet Count 65 K/mcL (140-400)
[2020-12-13 04:44] LABS: ABG Base Excess 0 mEq/L (-2 to 3); ABG HCO3 26 mEq/L (21-27); ABG Oxygen Saturation 97 % (95-98); ABG PCO2 43 mmHg (35-45); ABG PH 7.38 pH Units (7.32-7.45); ABG PO2 89 mmHg (85-104); ABG TCO2 27 mEq/L (20-26); Blood Gas VT 500 cc
[2020-12-13] MEDS ORDERED: Calcium Chloride 2,000 MG in 0.9 % Sodium Chloride 100 ML IVPB ONE ×2 (04:50→13:00)
[2020-12-13] MEDS ORDERED: Calcium Chloride 1,000 MG in 0.9 % Sodium Chloride 100 ML IVPB SCH (05:15)
[2020-12-13 05:58] LABS: Albumin 2.5 g/dL (3.5-5.7); Albumin/Globulin Ratio 1.6 (1.1-2.2); Bilirubin,Total 1.8 mg/dL (0.3-1.0); Calcium 7.2 mg/dL (8.6-10.3); Globulin 1.6 g/dL (2.4-3.5); Magnesium 2.1 mg/dL (1.6-2.6); Phosphorous 6.6 mg/dL (2.7-4.5); Potassium 4.7 mEq/L (3.5-5.1); Total Protein 4.1 g/dL (6.4-8.9)
[2020-12-13] MEDS: FentaNYL (PF) 1,000 MCG/100 ML IV.SOLN IVC SCH ×3 (06:00→23:20)
[2020-12-13] MEDS: Calcium Gluconate 1gm/50mL 1 GM/50 ML BAG IVPB PRN (07:00)
[2020-12-13] MEDS: Budesonide/Formoterol 160/4.5 1 PUFF INH IH SCH ×2 (08:01→19:52)
[2020-12-13] MEDS ORDERED: Amiodarone Premix 150 MG/100 ML BAG IVPB ONE (08:35)
[2020-12-13] MEDS ORDERED: Amiodarone Premix 360 MG/200 ML BAG IVC ONE (08:35)
[2020-12-13 09:18] LABS: INR 3.5; Prothrombin Time 38.5 Seconds (9.4-12.1)
[2020-12-13] MEDS: Chlorhexidine Rinse 15 ML MOUTHWASH MM SCH ×2 (10:49→20:22)
[2020-12-13] MEDS: Norepinephrine 4 MG/254 ML IV.SOLN IVC SCH ×2 (10:50→14:21)
[2020-12-13] MEDS: Pantoprazole 40 MG VIAL IVP SCH (10:51)
[2020-12-13] MEDS: Insulin DETEMIR 100 UNIT/ML X5UNITS SUBQ SCH ×2 (10:54→20:24)
[2020-12-13 10:56] LABS: VBG Ionized Calcium 1.02 mmol/L (1.15-1.35)
[2020-12-13] MEDS: Sodium Bicarbonate 150 MEQ in D5% in Water 1,000 ML IVC SCH ×3 (12:59→23:50)
[2020-12-13] MEDS ORDERED: *HR* Phytonadione 5 MG TABLET PO ONE (13:00)
[2020-12-13] MEDS: Vasopressin 40 UNIT in D5% in Water 100 ML IVC SCH (14:00)
[2020-12-13] MEDS ORDERED: Lidocaine/EPI 1:100k 1% 50 ML VIAL ONE (15:16)
[2020-12-13] MEDS ORDERED: Heparin 1,000 UNITS/500 mL 500 ML ONE (15:16)
[2020-12-13] MEDS ORDERED: *HR* Heparin 5,000 UNIT/ML VIAL ONE (15:28)
[2020-12-13] MEDS: Amiodarone Premix 360 MG/200 ML BAG IVC SCH ×2 (16:00→23:39)
[2020-12-13] MEDS: Nicotine 14 MG PATCH.TD24 TD SCH (17:39)
[2020-12-13] MEDS: Micafungin 100 MG in 0.9 % Sodium Chloride Mini Bag 100 ML IVPB SCH (18:40)
[2020-12-13 19:21] LABS: INR 3.3; Prothrombin Time 36.7 Seconds (9.4-12.1)
[2020-12-14] MEDS: Calcium Chloride 1,000 MG in 0.9 % Sodium Chloride 100 ML IVPB SCH ×2 (01:30→03:00)
[2020-12-14] MEDS: Ipratropium/Albuterol Neb 3 ML IH SCH ×6 (03:31→23:37)
[2020-12-14 04:03] LABS: ABG Base Excess -2 mEq/L (-2 to 3); ABG HCO3 23 mEq/L (21-27); ABG Oxygen Saturation 98 % (95-98); ABG PCO2 36 mmHg (35-45); ABG PH 7.42 pH Units (7.32-7.45); ABG PO2 99 mmHg (85-104); ABG TCO2 24 mEq/L (20-26); Blood Gas Modality AF; Blood Gas VT 500 cc
[2020-12-14] MEDS: Insulin LISPRO 300 UNITS/3 ML VIAL SUBQ SCH ×5 (04:07→21:14)
[2020-12-14] MEDS: Artificial Tears SOLN 15 ML BOTTLE BOTH EYES SCH ×5 (04:07→21:14)
[2020-12-14] MEDS: Vasopressin 40 UNIT in D5% in Water 100 ML IVC SCH (04:07)
[2020-12-14 04:32] LABS: Hemoglobin 7.5 g/dL (12.9-16.9)
[2020-12-14 04:32] LABS: VBG Ionized Calcium 1.02 mmol/L (1.15-1.35)
[2020-12-14 04:34] LABS: Hematocrit 22.4 % (37.5-50.1); Immature Platelets 4.9 % (1.1-6.1); Mean Corpuscular HGB Conc 33.5 g/dL (31.6-35.5); Mean Corpuscular Hemoglobin 24.7 pg (28.0-33.3); Mean Corpuscular Volume 73.7 fL (83.0-100.0); Mean Platelet Volume 10.9 fL (9.4-12.4); Red Blood Count 3.04 M/mcL (4.19-5.50); Red Cell Distribution Width 19.5 % (11.5-14.5); White Blood Count 10.7 K/mcL (4.3-11.1)
[2020-12-14 04:46] LABS: INR 3.2; Prothrombin Time 35.5 Seconds (9.4-12.1)
[2020-12-14] MEDS: Norepinephrine 4 MG/254 ML IV.SOLN IVC SCH ×2 (05:31→17:35)
[2020-12-14 05:40] LABS: Albumin 2.4 g/dL (3.5-5.7); Albumin/Globulin Ratio 1.3 (1.1-2.2); Bilirubin,Total 1.4 mg/dL (0.3-1.0); Calcium 8.5 mg/dL (8.6-10.3); Globulin 1.8 g/dL (2.4-3.5); Potassium 5.2 mEq/L (3.5-5.1); Total Protein 4.2 g/dL (6.4-8.9)
[2020-12-14] MEDS: Hydrocortisone Sodium Succ 100 MG/2 ML VIAL IVP SCH ×3 (05:43→18:13)
[2020-12-14] MEDS: Budesonide/Formoterol 160/4.5 1 PUFF INH IH SCH ×2 (07:35→19:50)
[2020-12-14] MEDS: Pantoprazole 40 MG VIAL IVP SCH (07:54)
[2020-12-14] MEDS: Piperacillin/Tazobactam 3.375 GM in 0.9 % Sodium Chloride Mini Bag 100 ML IVPB SCH ×2 (07:55→16:20)
[2020-12-14] MEDS: Nicotine 14 MG PATCH.TD24 TD SCH (07:58)
[2020-12-14] MEDS: Chlorhexidine Rinse 15 ML MOUTHWASH MM SCH ×2 (07:58→21:16)
[2020-12-14] MEDS: Insulin DETEMIR 100 UNIT/ML X5UNITS SUBQ SCH ×2 (07:58→21:16)
[2020-12-14] MEDS: FentaNYL (PF) 1,000 MCG/100 ML IV.SOLN IVC SCH ×2 (08:10→18:10)
[2020-12-14] MEDS: Midazolam HCl 50 MG/100 ML IV.SOLN IVC SCH ×2 (08:11→20:15)
[2020-12-14] MEDS ORDERED: *HR* Alteplase (Cathflo) 2 MG VIAL IVP PRN (09:24)
[2020-12-14] MEDS ORDERED: 0.9 % Sodium Chloride 1,000 ML PRIME ONE ×2 (09:24)
[2020-12-14] MEDS ORDERED: Calcium Gluconate 1gm/50mL 1 GM/50 ML BAG IVPB PRN ×2 (09:24)
[2020-12-14] MEDS ORDERED: *HR* Heparin 5,000 UNIT/ML VIAL IVP PRN (09:24)
[2020-12-14] MEDS ORDERED: 0.9 % Sodium Chloride 1,000 ML PRIME SCH (09:30)
[2020-12-14] MEDS: Amiodarone Premix 360 MG/200 ML BAG IVC SCH ×2 (11:19→23:18)
[2020-12-14] MEDS: Calcium Chloride 4,000 MG in 0.9 % Sodium Chloride 1,000 ML CRRT SCH (11:47)
[2020-12-14] MEDS: PrismaSATE BGK 4/2.5 5,000 ML CRRT SCH ×7 (12:00→22:15)
[2020-12-14 14:19] LABS: VBG Ionized Calcium 0.97 mmol/L (1.15-1.35)
[2020-12-14] MEDS: Calcium Gluconate 1gm/50mL 1 GM/50 ML BAG IVPB PRN (15:20)
[2020-12-14] MEDS: Micafungin 100 MG in 0.9 % Sodium Chloride Mini Bag 100 ML IVPB SCH (16:19)
[2020-12-14 17:45] LABS: VBG Ionized Calcium 1.05 mmol/L (1.15-1.35)
[2020-12-14 19:25] LABS: VBG Ionized Calcium 1.07 mmol/L (1.15-1.35)
[2020-12-15] MEDS: PrismaSATE BGK 4/2.5 5,000 ML CRRT SCH ×11 (01:00→22:18)
[2020-12-15 01:12] LABS: VBG Ionized Calcium 1.12 mmol/L (1.15-1.35)
[2020-12-15] MEDS: Norepinephrine 4 MG/254 ML IV.SOLN IVC SCH ×5 (01:24→20:50)
[2020-12-15] MEDS: FentaNYL (PF) 1,000 MCG/100 ML IV.SOLN IVC SCH ×2 (01:24→10:23)
[2020-12-15] MEDS: Hydrocortisone Sodium Succ 100 MG/2 ML VIAL IVP SCH ×3 (01:25→16:48)
[2020-12-15] MEDS: Piperacillin/Tazobactam 3.375 GM in 0.9 % Sodium Chloride Mini Bag 100 ML IVPB SCH ×4 (01:26→23:42)
[2020-12-15] MEDS: Artificial Tears SOLN 15 ML BOTTLE BOTH EYES SCH ×7 (01:26→23:16)
[2020-12-15] MEDS: Insulin LISPRO 300 UNITS/3 ML VIAL SUBQ SCH ×7 (01:26→23:21)
[2020-12-15] MEDS ORDERED: 0.9 % Sodium Chloride 1,000 ML PRIME PRN (01:29)
[2020-12-15] MEDS: Vasopressin 40 UNIT in D5% in Water 100 ML IVC SCH (01:31)
[2020-12-15] MEDS: Ipratropium/Albuterol Neb 3 ML IH SCH ×5 (03:38→19:42)
[2020-12-15 03:52] LABS: ABG Ionized Calcium 1.12 mmol/L (1.15-1.35)
[2020-12-15 04:01] LABS: Hematocrit 23.7 % (37.5-50.1); Hemoglobin 7.8 g/dL (12.9-16.9); Immature Platelets 5.2 % (1.1-6.1); Mean Corpuscular HGB Conc 32.9 g/dL (31.6-35.5); Mean Corpuscular Hemoglobin 24.6 pg (28.0-33.3); Mean Corpuscular Volume 74.8 fL (83.0-100.0); Mean Platelet Volume 11.2 fL (9.4-12.4); Red Blood Count 3.17 M/mcL (4.19-5.50); Red Cell Distribution Width 19.9 % (11.5-14.5); White Blood Count 12.4 K/mcL (4.3-11.1)
[2020-12-15 04:11] LABS: INR 2.1; Prothrombin Time 23.3 Seconds (9.4-12.1)
[2020-12-15 04:26] LABS: ABG Base Excess 0 mEq/L (-2 to 3); ABG HCO3 24 mEq/L (21-27); ABG Oxygen Saturation 98 % (95-98); ABG PCO2 32 mmHg (35-45); ABG PH 7.48 pH Units (7.32-7.45); ABG PO2 89 mmHg (85-104); ABG TCO2 25 mEq/L (20-26); Blood Gas Modality AF; Blood Gas VT 500 cc
[2020-12-15] MEDS: Calcium Chloride 4,000 MG in 0.9 % Sodium Chloride 1,000 ML CRRT SCH ×2 (05:00→22:00)
[2020-12-15 05:39] LABS: Albumin 2.5 g/dL (3.5-5.7); Albumin/Globulin Ratio 1.3 (1.1-2.2); Alkaline Phosphatase 120 Units/L (34-104); Aspartate Amino Transferase 132 Units/L (13-39); BUN/Creatinine Ratio 25 (6-26); Bilirubin,Total 1.2 mg/dL (0.3-1.0); Blood Urea Nitrogen 67 mg/dL (6-20); Calcium 8.7 mg/dL (8.6-10.3); Carbon Dioxide 24 mEq/L (23-29); Chloride 101 mEq/L (98-107); Globulin 1.9 g/dL (2.4-3.5); Glucose 119 mg/dL (70-105); Osmolality,Calculated 303 (280-300); Potassium 4.9 mEq/L (3.5-5.1); Sodium 136 mEq/L (136-145); Total Protein 4.4 g/dL (6.4-8.9); eGFR For African Americans 30 (> 60); eGFR For Non-African Americans 25 (> 60)
[2020-12-15 06:39] LABS: Alanine Aminotransferase > 5000 Units/L (7-52)
[2020-12-15] MEDS: Nicotine 14 MG PATCH.TD24 TD SCH (07:40)
[2020-12-15] MEDS: Pantoprazole 40 MG VIAL IVP SCH (07:40)
[2020-12-15] MEDS: Chlorhexidine Rinse 15 ML MOUTHWASH MM SCH ×2 (07:40→20:40)
[2020-12-15] MEDS: Budesonide/Formoterol 160/4.5 1 PUFF INH IH SCH ×2 (07:52→19:45)
[2020-12-15] MEDS: Insulin DETEMIR 100 UNIT/ML X5UNITS SUBQ SCH ×2 (07:57→20:42)
[2020-12-15] MEDS: Midazolam HCl 50 MG/100 ML IV.SOLN IVC SCH (08:45)
[2020-12-15 09:26] LABS: ABG Ionized Calcium 1.19 mmol/L (1.15-1.35)
[2020-12-15] MEDS: Amiodarone Premix 360 MG/200 ML BAG IVC SCH ×2 (11:30→23:45)
[2020-12-15 11:46] LABS: Phosphorous 3.9 mg/dL (2.7-4.5); Triglycerides 172 mg/dL (< 150)
[2020-12-15] MEDS ORDERED: D10% in Water 500 ML IVC PRN (12:02)
[2020-12-15 15:21] LABS: ABG Ionized Calcium 1.21 mmol/L (1.15-1.35)
[2020-12-15] MEDS: Micafungin 100 MG in 0.9 % Sodium Chloride Mini Bag 100 ML IVPB SCH (15:31)
[2020-12-15] MEDS ORDERED: Clinimix E 5%-15% SOLUTION 2,000 ML with MVI, adult with vitamin K 10 ML IVC SCH (17:00)
[2020-12-15 17:50] LABS: Albumin 2.4 g/dL (3.5-5.7); Albumin/Globulin Ratio 1.2 (1.1-2.2); Bilirubin,Direct 0.5 mg/dL (0.0-0.2); Bilirubin,Indirect 0.6 mg/dL (0.0-1.0); Bilirubin,Total 1.1 mg/dL (0.3-1.0); Total Protein 4.4 g/dL (6.4-8.9)
[2020-12-15 21:22] LABS: ABG Ionized Calcium 1.25 mmol/L (1.15-1.35)
[2020-12-16] MEDS: PrismaSATE BGK 4/2.5 5,000 ML CRRT SCH ×11 (00:10→23:15)
[2020-12-16] MEDS: Ipratropium/Albuterol Neb 3 ML IH SCH ×6 (00:48→20:12)
[2020-12-16] MEDS: Artificial Tears SOLN 15 ML BOTTLE BOTH EYES SCH ×6 (03:09→23:19)
[2020-12-16] MEDS: Norepinephrine 4 MG/254 ML IV.SOLN IVC SCH ×3 (03:10→21:17)
[2020-12-16] MEDS: Insulin LISPRO 300 UNITS/3 ML VIAL SUBQ SCH ×6 (03:21→23:40)
[2020-12-16 03:56] LABS: Hemoglobin 7.9 g/dL (12.9-16.9); Red Cell Distribution Width 21.2 % (11.5-14.5)
[2020-12-16 03:58] LABS: Hematocrit 24.2 % (37.5-50.1); Immature Platelets 5.1 % (1.1-6.1); Mean Corpuscular HGB Conc 32.6 g/dL (31.6-35.5); Mean Corpuscular Hemoglobin 25.4 pg (28.0-33.3); Mean Corpuscular Volume 77.8 fL (83.0-100.0); Mean Platelet Volume 11.4 fL (9.4-12.4); Red Blood Count 3.11 M/mcL (4.19-5.50); White Blood Count 11.4 K/mcL (4.3-11.1)
[2020-12-16 04:00] LABS: VBG Ionized Calcium 1.29 mmol/L (1.15-1.35)
[2020-12-16 04:20] LABS: Albumin 2.5 g/dL (3.5-5.7); Albumin/Globulin Ratio 1.3 (1.1-2.2); Calcium 9.1 mg/dL (8.6-10.3); Magnesium 2.1 mg/dL (1.6-2.6); Phosphorous 3.3 mg/dL (2.7-4.5); Potassium 4.9 mEq/L (3.5-5.1); Total Protein 4.5 g/dL (6.4-8.9)
[2020-12-16 04:52] LABS: ABG Base Excess 2 mEq/L (-2 to 3); ABG HCO3 26 mEq/L (21-27); ABG Oxygen Saturation 97 % (95-98); ABG PCO2 40 mmHg (35-45); ABG PH 7.43 pH Units (7.32-7.45); ABG PO2 86 mmHg (85-104); ABG TCO2 28 mEq/L (20-26); Blood Gas Modality ASSIST CONTROL; Blood Gas VT 500 cc
[2020-12-16] MEDS: Hydrocortisone Sodium Succ 100 MG/2 ML VIAL IVP SCH ×2 (06:14→17:27)
[2020-12-16] MEDS: Chlorhexidine Rinse 15 ML MOUTHWASH MM SCH ×2 (07:40→19:45)
[2020-12-16] MEDS: Nicotine 14 MG PATCH.TD24 TD SCH (07:40)
[2020-12-16] MEDS: Pantoprazole 40 MG VIAL IVP SCH (07:41)
[2020-12-16] MEDS: Piperacillin/Tazobactam 3.375 GM in 0.9 % Sodium Chloride Mini Bag 100 ML IVPB SCH ×3 (07:41→23:36)
[2020-12-16] MEDS: Budesonide/Formoterol 160/4.5 1 PUFF INH IH SCH ×2 (07:54→20:12)
[2020-12-16] MEDS: Insulin DETEMIR 100 UNIT/ML X5UNITS SUBQ SCH ×2 (08:03→21:16)
[2020-12-16] MEDS ORDERED: Amiodarone Premix 150 MG/100 ML BAG IVPB ONE ×2 (09:33→09:34)
[2020-12-16 09:41] LABS: VBG Ionized Calcium 1.29 mmol/L (1.15-1.35)
[2020-12-16] MEDS: Amiodarone Premix 360 MG/200 ML BAG IVC SCH ×3 (10:04→21:58)
[2020-12-16] MEDS: *HR* Metoprolol 5 MG/5 ML VIAL IVP SCH ×3 (12:38→23:34)
[2020-12-16] MEDS: Calcium Chloride 4,000 MG in 0.9 % Sodium Chloride 1,000 ML CRRT SCH (14:02)
[2020-12-16 15:36] LABS: VBG Ionized Calcium 1.31 mmol/L (1.15-1.35)
[2020-12-16] MEDS: Micafungin 100 MG in 0.9 % Sodium Chloride Mini Bag 100 ML IVPB SCH (16:14)
[2020-12-16] MEDS ORDERED: Clinimix E 5%-15% SOLUTION 2,000 ML with MVI, adult with vitamin K 10 ML IVC SCH (17:00)
[2020-12-16] MEDS: *HR* Heparin 5,000 UNIT/ML VIAL SQ SCH (17:27)
[2020-12-17] MEDS: Ipratropium/Albuterol Neb 3 ML IH SCH ×7 (00:01→23:32)
[2020-12-17] MEDS: PrismaSATE BGK 4/2.5 5,000 ML CRRT SCH ×4 (01:30→06:10)
[2020-12-17] MEDS: Artificial Tears SOLN 15 ML BOTTLE BOTH EYES SCH ×6 (03:13→23:39)
[2020-12-17] MEDS: Insulin LISPRO 300 UNITS/3 ML VIAL SUBQ SCH ×6 (03:13→23:37)
[2020-12-17] MEDS: Amiodarone Premix 360 MG/200 ML BAG IVC SCH ×3 (03:49→16:28)
[2020-12-17 04:18] LABS: VBG Ionized Calcium 1.28 mmol/L (1.15-1.35)
[2020-12-17 04:25] LABS: ABG Base Excess 0 mEq/L (-2 to 3); ABG HCO3 24 mEq/L (21-27); ABG Oxygen Saturation 97 % (95-98); ABG PCO2 37 mmHg (35-45); ABG PH 7.43 pH Units (7.32-7.45); ABG PO2 88 mmHg (85-104); ABG TCO2 26 mEq/L (20-26); Blood Gas Modality ASSIST CONTROL; Blood Gas VT 500 cc
[2020-12-17 04:27] LABS: Basophils % 0.1 %; Platelet Count 110 K/mcL (140-400)
[2020-12-17 04:29] LABS: Hematocrit 26.3 % (37.5-50.1); Hemoglobin 7.9 g/dL (12.9-16.9); Immature Granulocytes % 0.8 % (0-4); Immature Platelets 7.7 % (1.1-6.1); Lymphocytes # 0.2 K/mcL (0.6-4.6); Lymphocytes % 1.6 %; Mean Corpuscular Hemoglobin 23.8 pg (28.0-33.3); Mean Corpuscular Volume 79.2 fL (83.0-100.0); Mean Platelet Volume 11.6 fL (9.4-12.4); Monocytes # 0.9 K/mcL (0.0-1.3); Monocytes % 6.5 %; Nucleated Red Blood Cells 2.2 /100 WBC (0); Red Blood Count 3.32 M/mcL (4.19-5.50); Red Cell Distribution Width 21.1 % (11.5-14.5); White Blood Count 13.9 K/mcL (4.3-11.1)
[2020-12-17 04:30] LABS: Neutrophils # 12.7 K/mcL (1.6-8.9)
[2020-12-17] MEDS: Norepinephrine 4 MG/254 ML IV.SOLN IVC SCH ×3 (04:34→21:24)
[2020-12-17 04:45] LABS: BUN/Creatinine Ratio 23 (6-26); Blood Urea Nitrogen 30 mg/dL (6-20); Calcium 9.7 mg/dL (8.6-10.3); Carbon Dioxide 26 mEq/L (23-29); Chloride 101 mEq/L (98-107); Glucose 181 mg/dL (70-105); Osmolality,Calculated 291 (280-300); Phosphorous 3.1 mg/dL (2.7-4.5); Potassium 4.5 mEq/L (3.5-5.1); Sodium 135 mEq/L (136-145); eGFR For African Americans > 60 (> 60); eGFR For Non-African Americans 55 (> 60)
[2020-12-17] MEDS: *HR* Heparin 5,000 UNIT/ML VIAL SQ SCH ×2 (05:56→17:33)
[2020-12-17] MEDS: *HR* Metoprolol 5 MG/5 ML VIAL IVP SCH ×4 (05:57→21:25)
[2020-12-17] MEDS: Hydrocortisone Sodium Succ 100 MG/2 ML VIAL IVP SCH ×2 (05:58→17:32)
[2020-12-17] MEDS: Pantoprazole 40 MG VIAL IVP SCH (05:58)
[2020-12-17] MEDS: Calcium Chloride 4,000 MG in 0.9 % Sodium Chloride 1,000 ML CRRT SCH (06:20)
[2020-12-17 06:26] LABS: INR 1.3; Prothrombin Time 14.9 Seconds (9.4-12.1)
[2020-12-17] MEDS: Budesonide/Formoterol 160/4.5 1 PUFF INH IH SCH ×2 (07:38→20:45)
[2020-12-17] MEDS: Piperacillin/Tazobactam 3.375 GM in 0.9 % Sodium Chloride Mini Bag 100 ML IVPB SCH ×3 (07:47→23:34)
[2020-12-17] MEDS: Chlorhexidine Rinse 15 ML MOUTHWASH MM SCH ×2 (07:48→21:22)
[2020-12-17] MEDS: Nicotine 14 MG PATCH.TD24 TD SCH (07:48)
[2020-12-17] MEDS: Insulin DETEMIR 100 UNIT/ML X5UNITS SUBQ SCH ×3 (07:55→23:36)
[2020-12-17] MEDS: Dexmedetomidine HCl 400 MCG/100 ML MLS IVC SCH ×4 (09:00→23:39)
[2020-12-17] MEDS ORDERED: 0.9 % Sodium Chloride 1,000 ML ONE (11:06)
[2020-12-17] MEDS: Micafungin 100 MG in 0.9 % Sodium Chloride Mini Bag 100 ML IVPB SCH (16:08)
[2020-12-17] MEDS ORDERED: Clinimix E 5%-15% SOLUTION 2,000 ML with MVI, adult with vitamin K 10 ML IVC SCH (17:00)
[2020-12-17] MEDS: FentaNYL (PF) 1,000 MCG/100 ML IV.SOLN IVC SCH (23:43)
[2020-12-18] MEDS: *HR* Metoprolol 5 MG/5 ML VIAL IVP SCH ×5 (02:17→23:49)
[2020-12-18] MEDS: Ipratropium/Albuterol Neb 3 ML IH SCH ×6 (03:37→23:27)
[2020-12-18] MEDS: Amiodarone Premix 360 MG/200 ML BAG IVC SCH ×2 (04:10→16:23)
[2020-12-18] MEDS: Artificial Tears SOLN 15 ML BOTTLE BOTH EYES SCH ×6 (04:42→23:43)
[2020-12-18] MEDS: Insulin LISPRO 300 UNITS/3 ML VIAL SUBQ SCH ×6 (04:44→23:57)
[2020-12-18] MEDS: Dexmedetomidine HCl 400 MCG/100 ML MLS IVC SCH ×2 (05:05→17:26)
[2020-12-18 05:06] LABS: VBG Ionized Calcium 1.26 mmol/L (1.15-1.35)
[2020-12-18 05:08] LABS: Basophils % 0.1 %; Nucleated Red Blood Cells 0.5 /100 WBC (0); Red Cell Distribution Width 21.1 % (11.5-14.5)
[2020-12-18 05:10] LABS: Hematocrit 22.7 % (37.5-50.1); Hemoglobin 7.1 g/dL (12.9-16.9); Immature Granulocytes % 0.7 % (0-4); Immature Platelets 7.3 % (1.1-6.1); Lymphocytes # 0.3 K/mcL (0.6-4.6); Lymphocytes % 1.7 %; Mean Corpuscular HGB Conc 31.3 g/dL (31.6-35.5); Mean Corpuscular Hemoglobin 24.7 pg (28.0-33.3); Mean Corpuscular Volume 79.1 fL (83.0-100.0); Mean Platelet Volume 11.5 fL (9.4-12.4); Monocytes # 0.5 K/mcL (0.0-1.3); Neutrophils # 14.4 K/mcL (1.6-8.9); Platelet Count 104 K/mcL (140-400); Red Blood Count 2.87 M/mcL (4.19-5.50); Segmented Neutrophils % 94.5 %; White Blood Count 15.2 K/mcL (4.3-11.1)
[2020-12-18 05:16] LABS: INR 1.3; Prothrombin Time 14.8 Seconds (9.4-12.1)
[2020-12-18 05:18] LABS: ABG Base Excess -1 mEq/L (-2 to 3); ABG HCO3 23 mEq/L (21-27); ABG Oxygen Saturation 98 % (95-98); ABG PCO2 34 mmHg (35-45); ABG PH 7.44 pH Units (7.32-7.45); ABG PO2 101 mmHg (85-104); ABG TCO2 24 mEq/L (20-26); Blood Gas Modality ASSIST CONTROL; Blood Gas VT 500 cc
[2020-12-18 05:27] LABS: Calcium 8.7 mg/dL (8.6-10.3); Magnesium 2.1 mg/dL (1.6-2.6); Phosphorous 4.3 mg/dL (2.7-4.5); Potassium 4.7 mEq/L (3.5-5.1)
[2020-12-18] MEDS: Hydrocortisone Sodium Succ 100 MG/2 ML VIAL IVP SCH ×2 (05:28→17:16)
[2020-12-18] MEDS: *HR* Heparin 5,000 UNIT/ML VIAL SQ SCH ×2 (05:30→17:22)
[2020-12-18] MEDS: Norepinephrine 4 MG/254 ML IV.SOLN IVC SCH ×3 (05:38→23:42)
[2020-12-18] MEDS: Budesonide/Formoterol 160/4.5 1 PUFF INH IH SCH ×2 (07:51→20:26)
[2020-12-18] MEDS: Nicotine 14 MG PATCH.TD24 TD SCH (08:06)
[2020-12-18] MEDS: Pantoprazole 40 MG VIAL IVP SCH (08:07)
[2020-12-18] MEDS: Piperacillin/Tazobactam 3.375 GM in 0.9 % Sodium Chloride Mini Bag 100 ML IVPB SCH ×3 (08:16→23:50)
[2020-12-18] MEDS: Chlorhexidine Rinse 15 ML MOUTHWASH MM SCH ×2 (08:18→20:01)
[2020-12-18] MEDS: Insulin DETEMIR 100 UNIT/ML X5UNITS SUBQ SCH ×2 (08:25→20:03)
[2020-12-18 11:32] LABS: ABG Base Excess 1 mEq/L (-2 to 3); ABG HCO3 25 mEq/L (21-27); ABG Oxygen Saturation 95 % (95-98); ABG PCO2 40 mmHg (35-45); ABG PH 7.41 pH Units (7.32-7.45); ABG PO2 74 mmHg (85-104); ABG TCO2 27 mEq/L (20-26); Blood Gas Modality CPAP/PS; Blood Gas Pressure Support 5 cm H2O
[2020-12-18] MEDS: Micafungin 100 MG in 0.9 % Sodium Chloride Mini Bag 100 ML IVPB SCH (16:42)
[2020-12-18] MEDS ORDERED: Clinimix E 5%-15% SOLUTION 2,000 ML with MVI, adult with vitamin K 10 ML IVC SCH (17:00)
[2020-12-18] MEDS ORDERED: Linezolid 600 MG TABLET PO SCH (21:00)
[2020-12-19] MEDS: Dexmedetomidine HCl 400 MCG/100 ML MLS IVC SCH (02:50)
[2020-12-19] MEDS: Amiodarone Premix 360 MG/200 ML BAG IVC SCH ×2 (03:43→16:46)
[2020-12-19] MEDS: Artificial Tears SOLN 15 ML BOTTLE BOTH EYES SCH ×6 (03:44→23:40)
[2020-12-19] MEDS: Insulin LISPRO 300 UNITS/3 ML VIAL SUBQ SCH ×5 (03:45→22:39)
[2020-12-19] MEDS: Ipratropium/Albuterol Neb 3 ML IH SCH ×6 (04:17→23:34)
[2020-12-19 05:16] LABS: Hemoglobin 7.4 g/dL (12.9-16.9)
[2020-12-19 05:17] LABS: Hematocrit 24.1 % (37.5-50.1); Mean Corpuscular HGB Conc 30.7 g/dL (31.6-35.5); Mean Corpuscular Volume 81.4 fL (83.0-100.0); Mean Platelet Volume 10.8 fL (9.4-12.4); Platelet Count 169 K/mcL (140-400); Red Blood Count 2.96 M/mcL (4.19-5.50); Red Cell Distribution Width 21.2 % (11.5-14.5); White Blood Count 26.6 K/mcL (4.3-11.1)
[2020-12-19 05:24] LABS: INR 1.3; Prothrombin Time 14.4 Seconds (9.4-12.1)
[2020-12-19] MEDS: *HR* Heparin 5,000 UNIT/ML VIAL SQ SCH ×2 (05:50→18:56)
[2020-12-19] MEDS: *HR* Metoprolol 5 MG/5 ML VIAL IVP SCH ×3 (05:52→22:38)
[2020-12-19] MEDS: Hydrocortisone Sodium Succ 100 MG/2 ML VIAL IVP SCH (05:55)
[2020-12-19 06:48] LABS: Calcium 8.4 mg/dL (8.6-10.3); Magnesium 2.1 mg/dL (1.6-2.6); Phosphorous 5.9 mg/dL (2.7-4.5); Potassium 5.5 mEq/L (3.5-5.1)
[2020-12-19] MEDS: Pantoprazole 40 MG VIAL IVP SCH (07:46)
[2020-12-19] MEDS: Chlorhexidine Rinse 15 ML MOUTHWASH MM SCH ×2 (07:47→22:42)
[2020-12-19] MEDS: Piperacillin/Tazobactam 3.375 GM in 0.9 % Sodium Chloride Mini Bag 100 ML IVPB SCH ×3 (07:47→23:20)
[2020-12-19] MEDS: Insulin DETEMIR 100 UNIT/ML X5UNITS SUBQ SCH ×2 (07:49→22:50)
[2020-12-19] MEDS: Nicotine 14 MG PATCH.TD24 TD SCH (07:50)
[2020-12-19] MEDS: Norepinephrine 4 MG/254 ML IV.SOLN IVC SCH ×2 (08:16→13:38)
[2020-12-19] MEDS ORDERED: *HR* Heparin 10,000 UNIT/10 ML VIAL IV PRN (09:54)
[2020-12-19] MEDS ORDERED: Albumin 25% 25gram/100mL 25 GM/100 ML IV.SOLN IVPB PRN (09:54)
[2020-12-19] MEDS ORDERED: 0.9 % Sodium Chloride 250 ML IVC PRN (09:54)
[2020-12-19] MEDS ORDERED: 0.9 % Sodium Chloride 1,000 ML PRIME SCH (10:00)
[2020-12-19 11:15] LABS: Hepatitis B Surface Antibody < 3.10 mIU/mL
[2020-12-19 11:26] LABS: Hepatitis B Surface Antigen Nonreactive (Nonreactive)
[2020-12-19] MEDS: Calcium Chloride 4,000 MG in 0.9 % Sodium Chloride 1,000 ML CRRT SCH (11:33)
[2020-12-19] MEDS: Budesonide/Formoterol 160/4.5 1 PUFF INH IH SCH ×2 (11:59→20:22)
[2020-12-19 12:25] LABS: ABG Base Excess -7 mEq/L (-2 to 3); ABG HCO3 27 mEq/L (21-27); ABG Oxygen Saturation 75 % (95-98); ABG PCO2 134 mmHg (35-45); ABG PH 6.91 pH Units (7.32-7.45); ABG PO2 69 mmHg (85-104); ABG TCO2 31 mEq/L (20-26)
[2020-12-19] MEDS ORDERED: FentaNYL (PF) 1,000 MCG/100 ML IV.SOLN IVC SCH (12:30)
[2020-12-19] MEDS: FentaNYL (PF) 1,000 MCG/100 ML IV.SOLN IVC SCH ×3 (13:15→21:10)
[2020-12-19 15:07] LABS: ABG Base Excess -3 mEq/L (-2 to 3); ABG HCO3 23 mEq/L (21-27); ABG Oxygen Saturation 96 % (95-98); ABG PCO2 42 mmHg (35-45); ABG PH 7.34 pH Units (7.32-7.45); ABG PO2 87 mmHg (85-104); ABG TCO2 24 mEq/L (20-26); Blood Gas Modality ASSIST CONTROL; Blood Gas VT 500 cc
[2020-12-19] MEDS: Micafungin 100 MG in 0.9 % Sodium Chloride Mini Bag 100 ML IVPB SCH (16:51)
[2020-12-19] MEDS ORDERED: Clinimix 5%-20% SOLUTION 2,000 ML with MVI, adult with vitamin K 10 ML, Sodium Acetat... IVC SCH (17:00)
[2020-12-19 18:16] LABS: Amorphous Sediment,Urine Few per hpf (None-Few); Bacteria,Urine Few per hpf (None-Few); Bilirubin,Urine Negative (Negative); Blood,Urine Moderate (Negative); Clarity,Urine Turbid (Clear); Color,Urine Yellow (Yellow); Glucose,Urine (UA) 100 mg/dL (Normal); Ketones,Urine Negative (Negative); Leukocyte Esterase,Urine Negative (Negative); Mucus,Urine Few per lpf (None-Few); Nitrite,Urine Negative (Negative); Protein,Urine 100 mg/dL (Neg-Trace); RBC,Urine 15-30 per hpf (0-3); Specific Gravity,Urine 1.018 (1.010-1.025); Squamous Epithelial Cell,Urine Few per hpf (None-Few); Urobilinogen,Urine Normal (Normal); WBC,Urine 30-50 per hpf (0-3)
[2020-12-19] MEDS ORDERED: Linezolid 600 MG TABLET PO SCH (21:00)
[2020-12-20] MEDS: Insulin LISPRO 300 UNITS/3 ML VIAL SUBQ SCH ×6 (00:51→19:58)
[2020-12-20] MEDS: Norepinephrine 4 MG/254 ML IV.SOLN IVC SCH ×4 (00:52→21:45)
[2020-12-20] MEDS: *HR* Metoprolol 5 MG/5 ML VIAL IVP SCH ×4 (00:58→19:56)
[2020-12-20] MEDS: Artificial Tears SOLN 15 ML BOTTLE BOTH EYES SCH ×5 (03:53→19:26)
[2020-12-20] MEDS: Ipratropium/Albuterol Neb 3 ML IH SCH ×5 (03:54→20:08)
[2020-12-20] MEDS: Amiodarone Premix 360 MG/200 ML BAG IVC SCH ×2 (03:55→16:20)
[2020-12-20 04:21] LABS: ABG Base Excess -3 mEq/L (-2 to 3); ABG HCO3 22 mEq/L (21-27); ABG Oxygen Saturation 97 % (95-98); ABG PCO2 41 mmHg (35-45); ABG PH 7.35 pH Units (7.32-7.45); ABG PO2 92 mmHg (85-104); ABG TCO2 24 mEq/L (20-26); Blood Gas VT 500 cc
[2020-12-20 04:33] LABS: Hematocrit 21.7 % (37.5-50.1); Hemoglobin 6.8 g/dL (12.9-16.9); Mean Corpuscular HGB Conc 31.3 g/dL (31.6-35.5); Mean Corpuscular Hemoglobin 24.9 pg (28.0-33.3); Mean Corpuscular Volume 79.5 fL (83.0-100.0); Mean Platelet Volume 10.8 fL (9.4-12.4); Platelet Count 137 K/mcL (140-400); Red Blood Count 2.73 M/mcL (4.19-5.50); Red Cell Distribution Width 20.6 % (11.5-14.5); White Blood Count 22.3 K/mcL (4.3-11.1)
[2020-12-20 04:42] LABS: INR 1.4; Prothrombin Time 15.2 Seconds (9.4-12.1)
[2020-12-20 04:53] LABS: Calcium 7.9 mg/dL (8.6-10.3); Phosphorous 5.4 mg/dL (2.7-4.5); Potassium 4.8 mEq/L (3.5-5.1)
[2020-12-20] MEDS: FentaNYL (PF) 1,000 MCG/100 ML IV.SOLN IVC SCH ×2 (05:56→17:44)
[2020-12-20] MEDS: *HR* Heparin 5,000 UNIT/ML VIAL SQ SCH ×2 (05:59→17:06)
[2020-12-20] MEDS: Budesonide/Formoterol 160/4.5 1 PUFF INH IH SCH ×2 (07:36→20:09)
[2020-12-20] MEDS: Pantoprazole 40 MG VIAL IVP SCH (09:06)
[2020-12-20] MEDS: Chlorhexidine Rinse 15 ML MOUTHWASH MM SCH ×2 (09:07→19:28)
[2020-12-20] MEDS: Nicotine 14 MG PATCH.TD24 TD SCH (09:07)
[2020-12-20] MEDS: Piperacillin/Tazobactam 3.375 GM in 0.9 % Sodium Chloride Mini Bag 100 ML IVPB SCH (09:07)
[2020-12-20] MEDS: Insulin DETEMIR 100 UNIT/ML X5UNITS SUBQ SCH ×2 (09:08→20:00)
[2020-12-20] MEDS: Calcium Chloride 4,000 MG in 0.9 % Sodium Chloride 1,000 ML CRRT SCH (13:15)
[2020-12-20] MEDS: PrismaSATE BGK 4/2.5 5,000 ML CRRT SCH ×2 (13:16)
[2020-12-20] MEDS ORDERED: DAPTOmycin 650 MG in 0.9 % Sodium Chloride 100 ML IVPB SCH (16:00)
[2020-12-20] MEDS: MetroNIDAZOLE 500 MG/100 ML 500 MG/100 ML BAG IVPB SCH (16:58)
[2020-12-20] MEDS ORDERED: Clinimix 5%-20% SOLUTION 2,000 ML with MVI, adult with vitamin K 10 ML, Sodium Acetat... IVC SCH (17:00)
[2020-12-20] MEDS: cefTRIAXone 2,000 MG in Water for inj. (sterile) 20 ML IVP SCH (17:03)
[2020-12-20] MEDS: Micafungin 100 MG in 0.9 % Sodium Chloride Mini Bag 100 ML IVPB SCH (17:07)
[2020-12-21] MEDS: Ipratropium/Albuterol Neb 3 ML IH SCH ×7 (00:04→23:37)
[2020-12-21] MEDS: *HR* Metoprolol 5 MG/5 ML VIAL IVP SCH ×2 (00:14→07:34)
[2020-12-21] MEDS: MetroNIDAZOLE 500 MG/100 ML 500 MG/100 ML BAG IVPB SCH ×4 (00:14→23:18)
[2020-12-21] MEDS: Artificial Tears SOLN 15 ML BOTTLE BOTH EYES SCH ×7 (00:14→23:18)
[2020-12-21] MEDS: Insulin LISPRO 300 UNITS/3 ML VIAL SUBQ SCH ×6 (00:15→20:28)
[2020-12-21] MEDS: Norepinephrine 4 MG/254 ML IV.SOLN IVC SCH ×5 (03:23→21:35)
[2020-12-21 04:10] LABS: Hemoglobin 8.2 g/dL (12.9-16.9); Mean Corpuscular HGB Conc 31.5 g/dL (31.6-35.5); Mean Corpuscular Hemoglobin 24.6 pg (28.0-33.3); Mean Corpuscular Volume 78.1 fL (83.0-100.0); Mean Platelet Volume 10.5 fL (9.4-12.4); Platelet Count 169 K/mcL (140-400); Red Blood Count 3.33 M/mcL (4.19-5.50); Red Cell Distribution Width 20.7 % (11.5-14.5); White Blood Count 23.7 K/mcL (4.3-11.1)
[2020-12-21] MEDS: FentaNYL (PF) 1,000 MCG/100 ML IV.SOLN IVC SCH ×3 (04:15→23:37)
[2020-12-21 04:17] LABS: INR 1.3; Prothrombin Time 14.3 Seconds (9.4-12.1)
[2020-12-21 04:17] LABS: VBG Ionized Calcium 1.14 mmol/L (1.15-1.35)
[2020-12-21] MEDS: Amiodarone Premix 360 MG/200 ML BAG IVC SCH (04:19)
[2020-12-21 04:30] LABS: Calcium 7.7 mg/dL (8.6-10.3); Phosphorous 5.3 mg/dL (2.7-4.5); Potassium 4.3 mEq/L (3.5-5.1)
[2020-12-21 04:49] LABS: ABG Base Excess -6 mEq/L (-2 to 3); ABG HCO3 21 mEq/L (21-27); ABG Oxygen Saturation 98 % (95-98); ABG PCO2 44 mmHg (35-45); ABG PH 7.28 pH Units (7.32-7.45); ABG PO2 109 mmHg (85-104); ABG TCO2 22 mEq/L (20-26); Blood Gas Modality ASSIST CONTROL; Blood Gas VT 500 cc
[2020-12-21] MEDS: *HR* Heparin 5,000 UNIT/ML VIAL SQ SCH ×2 (05:51→17:13)
[2020-12-21] MEDS: Chlorhexidine Rinse 15 ML MOUTHWASH MM SCH ×2 (07:44→20:28)
[2020-12-21] MEDS: Pantoprazole 40 MG VIAL IVP SCH (07:44)
[2020-12-21] MEDS: Nicotine 14 MG PATCH.TD24 TD SCH (07:44)
[2020-12-21] MEDS: Budesonide/Formoterol 160/4.5 1 PUFF INH IH SCH ×2 (07:48→19:53)
[2020-12-21] MEDS: Insulin DETEMIR 100 UNIT/ML X5UNITS SUBQ SCH ×2 (08:33→20:28)
[2020-12-21] MEDS: PrismaSATE BGK 4/2.5 5,000 ML CRRT SCH ×2 (10:48)
[2020-12-21] MEDS: Calcium Chloride 4,000 MG in 0.9 % Sodium Chloride 1,000 ML CRRT SCH (10:48)
[2020-12-21] MEDS: *HR* Amiodarone 200 MG TABLET PO SCH (11:54)
[2020-12-21] MEDS: Phenylephrine 50 MG in 0.9 % Sodium Chloride 250 ML IVC SCH ×2 (13:51→19:15)
[2020-12-21] MEDS: cefTRIAXone 2,000 MG in Water for inj. (sterile) 20 ML IVP SCH (15:18)
[2020-12-21] MEDS: Micafungin 100 MG in 0.9 % Sodium Chloride Mini Bag 100 ML IVPB SCH (16:30)
[2020-12-21] MEDS ORDERED: Clinimix 5%-20% SOLUTION 2,000 ML with MVI, adult with vitamin K 10 ML, Sodium Acetat... IVC SCH (17:00)
[2020-12-22] MEDS: Phenylephrine 50 MG in 0.9 % Sodium Chloride 250 ML IVC SCH ×3 (01:00→09:52)
[2020-12-22] MEDS: Insulin LISPRO 300 UNITS/3 ML VIAL SUBQ SCH ×4 (01:07→11:37)
[2020-12-22] MEDS: Norepinephrine 4 MG/254 ML IV.SOLN IVC SCH ×2 (03:10→09:52)
[2020-12-22] MEDS: Ipratropium/Albuterol Neb 3 ML IH SCH ×5 (03:20→20:15)
[2020-12-22] MEDS: Artificial Tears SOLN 15 ML BOTTLE BOTH EYES SCH ×5 (03:49→23:45)
[2020-12-22 04:01] LABS: Hematocrit 24.1 % (37.5-50.1); Hemoglobin 7.7 g/dL (12.9-16.9); Mean Corpuscular Volume 78.2 fL (83.0-100.0); Mean Platelet Volume 10.8 fL (9.4-12.4); Platelet Count 167 K/mcL (140-400); Red Blood Count 3.08 M/mcL (4.19-5.50); Red Cell Distribution Width 20.6 % (11.5-14.5); White Blood Count 21.1 K/mcL (4.3-11.1)
[2020-12-22 04:10] LABS: INR 1.5; Prothrombin Time 16.9 Seconds (9.4-12.1)
[2020-12-22 04:22] LABS: Magnesium 2.1 mg/dL (1.6-2.6); Phosphorous 6.2 mg/dL (2.7-4.5); Potassium 4.7 mEq/L (3.5-5.1)
[2020-12-22 04:22] LABS: ABG Base Excess -7 mEq/L (-2 to 3); ABG HCO3 20 mEq/L (21-27); ABG Oxygen Saturation 97 % (95-98); ABG PCO2 42 mmHg (35-45); ABG PH 7.28 pH Units (7.32-7.45); ABG PO2 103 mmHg (85-104); ABG TCO2 21 mEq/L (20-26); Blood Gas Modality AF; Blood Gas VT 500 cc
[2020-12-22] MEDS: *HR* Heparin 5,000 UNIT/ML VIAL SQ SCH (05:29)
[2020-12-22] MEDS: Budesonide/Formoterol 160/4.5 1 PUFF INH IH SCH (07:38)
[2020-12-22] MEDS: FentaNYL (PF) 1,000 MCG/100 ML IV.SOLN IVC SCH ×2 (08:00→15:45)
[2020-12-22] MEDS: PrismaSATE BGK 4/2.5 5,000 ML CRRT SCH ×2 (08:18)
[2020-12-22] MEDS: Calcium Chloride 4,000 MG in 0.9 % Sodium Chloride 1,000 ML CRRT SCH (08:18)
[2020-12-22] MEDS: Nicotine 14 MG PATCH.TD24 TD SCH (08:22)
[2020-12-22] MEDS: *HR* Amiodarone 200 MG TABLET PO SCH (08:22)
[2020-12-22] MEDS: Pantoprazole 40 MG VIAL IVP SCH (08:22)
[2020-12-22] MEDS: Chlorhexidine Rinse 15 ML MOUTHWASH MM SCH ×2 (08:22→22:03)
[2020-12-22] MEDS: MetroNIDAZOLE 500 MG/100 ML 500 MG/100 ML BAG IVPB SCH (08:23)
[2020-12-22] MEDS: Insulin DETEMIR 100 UNIT/ML X5UNITS SUBQ SCH (08:43)
[2020-12-22] MEDS ORDERED: Glycopyrrolate 0.2 MG/ML VIAL IVP ONE (12:07)
[2020-12-22] MEDS: *HR* LORazepam 2 MG/ML VIAL IVP PRN ×2 (12:44→23:44)
[2020-12-22] MEDS ORDERED: DAPTOmycin 650 MG in 0.9 % Sodium Chloride 100 ML IVPB SCH (16:00)
[2020-12-22 18:39] VITALS: BP 87/57; PULSE 82; TEMP 97.4; O2SAT 93
[2020-12-23] MEDS: Artificial Tears SOLN 15 ML BOTTLE BOTH EYES SCH (01:16)
== END 2020-12-23 00:28 | disposition expired | DRG 950 ==
LOC: 2ANU → SUATTDRO 12-02 09:21 → 2NENU 12-05 18:49 → ICNU 12-10 12:58 → 2ANU 12-22 17:02
PROVIDERS: ADMIT Family Medicine; ATTEND Internal Medicine